=== PATIENT | female | born 1935 | race Caucasian/White ===

== ENCOUNTER 2022-03-13 13:37 | Inpatient (IN) ==
[2022-03-13 15:41] LABS: ABG BASE EXCESS 5.8 mmol/L (-2.0-2.0)
[2022-03-13 15:42] LABS: ABG ALLEN TEST POS; ABG HCO3 30.6 mmol/L (22-26)
[2022-03-13] MEDS: PULMICORT NEB TX 0.5 MG NEB SCH ×2 (16:05→20:57)
[2022-03-13 16:08] VITALS: BMI 28.5
[2022-03-13 16:14] LABS: BASOPHILS # (AUTO) 0.1 X10^3/uL (0.0-0.1); BASOPHILS % (AUTO) 1.2 % (0.2-1.0); EOSINOPHILS # (AUTO) 0.1 x10^3/uL (0.0-0.2); ERYTHROCYTE SEDIMENTATION RATE 43 MM/HOUR (0-20); HEMOGLOBIN 13.6 g/dL (12.0-16.0); LYMPHOCYTES # (AUTO) 1.5 X10^3/uL (1.3-2.9); LYMPHOCYTES % (AUTO) 21.9 % (21.0-51.0); MEAN CORPUSCULAR HEMOGLOBIN 31.3 pg (27.0-34.0); MEAN CORPUSCULAR HGB CONC 33.9 g/dL (33.0-35.0); MEAN CORPUSCULAR VOLUME 92.2 fL (80.0-100.0); MEAN PLATELET VOLUME 7.4 fL (7.4-11.0); MONOCYTES % (AUTO) 15.6 % (0.0-13.0); NEUTROPHILS % (AUTO) 60.3 % (42.0-75.0); RED BLOOD COUNT 4.34 X10^6/uL (3.5-5.4); RED CELL DISTRIBUTION WIDTH 14.5 % (11.6-16.5); WHITE BLOOD COUNT 6.7 X10^3/uL (3.6-10.0)
[2022-03-13 16:22] LABS: ALBUMIN 3.3 g/dL (3.4-5.0); CALCIUM 8.2 mg/dL (8.5-10.1); CARBON DIOXIDE 29.6 mmol/L (21-32); COR CA(FOR HYPOALB) 8.8 mg/dL (8.5-10.1); CREATININE 1.64 mg/dL (0.55-1.02); TOTAL PROTEIN 6.8 g/dL (6.4-8.2)
[2022-03-13 16:27] LABS: LACTIC ACID 1.8 mmol/L (0.4-2.0)
[2022-03-13 16:29] LABS: BILIRUBIN,URINE NEGATIVE (NEGATIVE); BLOOD/HEMOGLOBIN,URINE 1+ (NEGATIVE); GLUCOSE, URINE NEGATIVE (NEGATIVE); KETONES,URINE NEGATIVE (NEGATIVE); LEUKOCYTE ESTERASE ,URINE 3+ (NEGATIVE); NITRITES,URINE NEGATIVE (NEGATIVE); PROTEIN,URINE NEGATIVE (NEGATIVE); UROBILINOGEN,URINE NORMAL (NORMAL)
[2022-03-13 16:33] LABS: APPEARANCE,URINE HAZY (CLEAR); BACTERIA,URINE TRACE /HPF (NEGATIVE); COLOR,URINE YELLOW (YELLOW); SQUAMOUS EPITHELIAL CELL,UR FEW /HPF (NEGATIVE)
[2022-03-13] MEDS: SOLU-Medrol 40 MG VIAL IVP SCH ×2 (16:53→21:57)
[2022-03-13] MEDS: NS 1,000 ML IV 1,000 ML IV SCH (16:54)
[2022-03-13] MEDS: DUONEB 0.5 MG/3 MG (3 mL) NEB SCH (17:46)
--- NOTE | 2022-03-13 18:57 | RAD ---
HISTORYcomplaints of right sided rib pain that resulted from a recent fall.STUDYCHEST, 1 VIEWCOMPARISONNone.TECHNIQUEA single frontal view of the chest was obtained.FINDINGSThe heart is normal in size. There is no focal infiltrate. There is no effusion. There is no pneumothorax. The osseous structures are intact.IMPRESSIONNo focal infiltrate or effusion.Electronically signed by: Saundra Oscar (Mar 13, 2022 18:55:41)
[2022-03-13] MEDS: SNACK - Diabetic Appropriate PO SCH (20:50)
[2022-03-13] MEDS ORDERED: ROCEPHIN VIAL 1 GRAM 1 G in NS 100 ML IV + SPIKE MINIBAG* 100 ML IV SCH (23:00)
[2022-03-13] MEDS ORDERED: NS 100 ML IV 100 ML ONE (23:08)
[2022-03-13] MEDS ORDERED: ROCEPHIN VIAL 1 GRAM ONE (23:08)
[2022-03-14] MEDS: DUONEB 0.5 MG/3 MG (3 mL) NEB SCH ×2 (04:04→05:38)
[2022-03-14] MEDS: NovoLIN R (or HumuLIN R) SUBCUT PRN ×3 (05:25→20:23)
[2022-03-14] MEDS: NS 1,000 ML IV 1,000 ML IV SCH ×2 (05:25→20:12)
[2022-03-14] MEDS: SOLU-Medrol 40 MG VIAL IVP SCH ×3 (05:25→21:39)
[2022-03-14 06:38] LABS: BASOPHILS % (AUTO) 0.1 % (0.2-1.0); HEMATOCRIT 39.1 % (36.0-47.0); HEMOGLOBIN 13.2 g/dL (12.0-16.0); LYMPHOCYTES % (AUTO) 13.8 % (21.0-51.0); MEAN CORPUSCULAR HEMOGLOBIN 31.1 pg (27.0-34.0); MEAN CORPUSCULAR HGB CONC 33.7 g/dL (33.0-35.0); MEAN CORPUSCULAR VOLUME 92.2 fL (80.0-100.0); MEAN PLATELET VOLUME 8.2 fL (7.4-11.0); MONOCYTES # (AUTO) 0.2 x10^3/uL (0.3-0.8); MONOCYTES % (AUTO) 3.3 % (0.0-13.0); NEUTROPHILS # (AUTO) 5.7 x10^3/uL (2.2-4.8); NEUTROPHILS % (AUTO) 82.8 % (42.0-75.0); RED BLOOD COUNT 4.24 X10^6/uL (3.5-5.4); WHITE BLOOD COUNT 6.9 X10^3/uL (3.6-10.0)
[2022-03-14 06:53] LABS: ALBUMIN 3.1 g/dL (3.4-5.0); CALCIUM 7.9 mg/dL (8.5-10.1); CARBON DIOXIDE 28.4 mmol/L (21-32); COR CA(FOR HYPOALB) 8.6 mg/dL (8.5-10.1); CREATININE 1.38 mg/dL (0.55-1.02); TOTAL PROTEIN 6.8 g/dL (6.4-8.2)
[2022-03-14] MEDS: PULMICORT NEB TX 0.5 MG NEB SCH ×2 (08:40→20:04)
[2022-03-14] MEDS ORDERED: REMDESIVIR 200 MG in NS 250 ML IV 250 ML IV ONE (09:19)
--- NOTE | 2022-03-14 10:21 | DR.H&P ---
H&P - History & Physical for Day of: H&P Date: 03/13/22 - Chief Complaint Chief Complaint: WEAKNESS, FREQUENT FALLS, COVID-19, RIB PAIN - History of Present Illness History of Present Illness: IS A 86 YEAR OLD PATIENT OF OURS. SHE P RESENTED TO THE HOSPTIAL A DIRECT ADMISSION DUE TO COMPLAINTS OF GENERALIZED WEAKNESS, FREQUENT FALLS, AND COVID-19. HER DAUGHTER REPORTS THAT SHE TESTED POSITIVE FOR COVID-19 VIA HOME TEST 2 DAYS AGO. PATIENT REPORTS THAT SHE FELL AT HOME PRIOR TO ADMISSION. SHE REPORTS THAT SHE HAS FALLEN MULTIPLE TIMES OVER THE PAST FEW MONTHS. SHE COMPLAINS OF RIGHT SIDED RIB PAIN SINCE FALLING AND SHORTNESS OF BREATH. SHE RATES PAIN A 9/10. PAIN IS WORSE WITH MOVEMENT OR DEEP BREATHS. SHE DENIES CHEST PAIN, DIZZINESS, FEVER, OR COUGH. HER PMH INCLUDES: TIAs, HYPERLIPIDEMIA, HTN, A-FIB, COPD, GERD, DM II, HYPOTHYROIDISM, HX OF BREAST CANCER, HYSTERECTOMY, AND DOUBLE MASTECTOMY. ON ARRIVAL TO THE HOSPTIAL, VITALS WERE: 98.3-91-20-95%-108/65. LABS WERE OBTAINED. WBC 6.7, RBC 4.34, HGB 13.6, HCT 40.0, PLT COUNT 166, D-DIMER 0.52, SODIUM 134, POTASSIUM 3.6, CHLORIDE 98, BUN 22, CREATININE 1.64, GLUCOSE 209, LACTIC ACID 1.8, CALCIUM 8.2, AST 18, ALT 16, ALK PHOS 109, CRP 30.10, TOTAL PROTEIN 6.8, ALBUMIN 3.3. AN ABG WAS OBTAINED AND REVEALED: PH 7.450, PC02 44, P02 61, HC03 30.6, 02 SAT 92, BASE EXCESS 5.8, A-A GRADIENT 34, FI02 21.0. URINALYSIS REVEALED: WBC 30-50, RBC 5- 10, LEUKOCYTES 3+, BACTERIA TRACE. COVID-19 NEGATIVE. URINE AND BLOOD CULTURES WERE SET UP. A CHEST XRAY WAS OBTAINED AND REVEALED: NO FOCAL INFILTRATE OR EFFUSION. EKG OBTAINED AND REVEALED: ATRIAL FIBRILLATION WITH HR 92. SHE WAS STARTED ON NORMAL SALINE AT 75 ML/HR, REMDESIVIR 100MG IV DAILY (REMDESIVIR 200MG IV X 1 LOADING DOSE), ROCEPHIN 1G IV HS, SOLU-MEDROL 40MG IV Q8H, PULMICORT NEBS BID, DIFLUCAN 100MG PO DAILY, OTBS ACHS, HUMULIN R SLIDING SCALE, AND HER HOME MEDICATIONS WERE RESUMED. WE WILL OBTAIN A RIB SERIES TO ASSESS FOR RIB FRACTURES FOLLOWING FALL. OTHERWISE, WE PLAN TO FOLLOW-UP WITH AM LABS AND CONTINUE TO MONITOR. TIME SPENT ON CLINICAL ASSESSMENT, REVIWING LABS AND IMAGING, DECISION MAKING, AND DOCUMENTATION GREATER THAN 75 MINUTES. - Past Medical History Past Medical History: COPD, Diabetes, Dyslipidemia, GERD, Hypertension, Hyperthyroidism Additional Medical History: A-FIB, BREAST CANCER - Past Surgical History Surgical History: Hysterectomy, Other - Family History Family Medical History: Diabetes Mellitus, Cancer, [place], Hypertension - Social History Does patient currently use any type of tobacco product: No Have you used tobacco products in the last 12 months: No Type of Tobacco Use: None Does any household member use tobacco: No Alcohol Use: None Drug Use: None - Medications Home Medications: No Known Drug Allergies Allergy (Verified 03/13/22 16:26) CONTINUE taking the following medications allopurinol 100 mg tablet 1 tab PO QDAY 03/13/22 [History] atorvastatin 10 mg tablet 1 tab PO QPM cholesterol 03/13/22 [History] dabigatran etexilate 150 mg capsule (Pradaxa) 1 cap PO BID 03/13/22 [History] furosemide 40 mg tablet 1 tab PO BID 03/13/22 [History] glipizide 5 mg tablet 1.5 tab PO BID 03/13/22 [History] levothyroxine 50 mcg tablet 1 tab PO QAM 03/13/22 [History] nebivolol 2.5 mg tablet (Bystolic) 2.5 mg PO DAILY 03/13/22 [History] pantoprazole 40 mg tablet,delayed release 1 tab PO QDAY 03/13/22 [History] paroxetine HCl 20 mg tablet 1 tab PO QAM 03/13/22 [History] potassium chloride 10 mEq tablet,extended release 1 tab PO BID 03/13/22 [History] - Review of Systems Constitutional: Weakness Eyes: No Symptoms Reported ENT: No Symptoms Reported Respiratory: Shortness of Breath Cardiovascular: No Symptoms Reported Gastrointestinal: No Symptoms Reported Genitourinary: No Symptoms Reported Musculoskeletal: See HPI, Other (RIGHT SIDED RIB PAIN ) Skin: No Symptoms Reported Neurological: Weakness - Physical Exam Vital Signs: Temperature 97.5 F Pulse Rate [Left Brachial] 102 Pulse Rate 86 Respiratory Rate 20 Blood Pressure [Right Arm] 133/91 O2 Sat by Pulse Oximetry 97 Oriented: Normal Eyes: Normal Ear: Normal Nose: Normal Throat: Normal Respiratory: Diminished Throughout Cardiovascular: Irregular (A-FIB ). negative: S3, S4 : Normal Auscultation: Bowel Sounds: Normal Palpation: Normal Tenderness: Normal Skin: Normal Musculoskeletal: Right (RIGHT SIDED RIB TENDERNESS ), Tender Psychiatric: Normal Mood Description: Calm Affect: Normal Speech Pattern: Clear - Assessment/Plan (1) Urinary tract infection Qualifiers: Urinary tract infection type: acute cystitis Hematuria presence: with hematuria Qualified Code(s): N30.01 - Acute cystitis with hematuria Status: Acute Plan: ADMIT, NORMAL SALINE AT 75 ML/HR, REMDESIVIR 100MG IV DAILY (REMDESIVIR 200MG IV X 1 LOADING DOSE), ROCEPHIN 1G IV HS, SOLU-MEDROL 40MG IV Q8H, PULMICORT NEBS BID, DIFLUCAN 100MG PO DAILY, OTBS ACHS, HUMULIN R SLIDING SCALE, AND HER HOME MEDICATIONS WERE RESUMED. (2) COVID-19 Status: Acute (3) Generalized weakness Status: Acute (4) Frequent falls Status: Acute (5) HTN (hypertension) Qualifiers: Hypertension type: primary hypertension Qualified Code(s): I10 - Essential (primary) hypertension Status: Chronic (6) Diabetes mellitus Qualifiers: Diabetes mellitus type: type 2 Diabetes mellitus long-term insulin use: unspecified long-term insulin use status Diabetes mellitus complication status: with hyperglycemia Qualified Code(s): E11.65 - Type 2 diabetes mellitus with hyperglycemia Status: Chronic - Allergies Allergies/Adverse Reactions: Allergies Allergy/AdvReac Type Severity Reaction Status Date / Time No Known Drug Allergies Allergy Verified 03/13/22 16:26
--- NOTE | 2022-03-14 11:11 | RAD ---
HISTORYPAIN TO RIGHT UPPER RIB AFTER FALLSTUDYX-ray chest and right ribs, one view chest and two views right ribsCOMPARISONCT chest 03/12/2022FINDINGSBorderline CHF or fluid overload is suspected. There may be mild pulmonary edema. No pneumothorax or pleural effusion is seen. Mildly displaced left 10th rib fracture is seen laterally. No right rib fracture is seen.IMPRESSIONNo right rib fracture is seen. Mildly displaced left 10th rib fracture is seen.Electronically signed by: Doc Perera (Mar 14, 2022 11:10:23)
[2022-03-14] MEDS ORDERED: REMDESIVIR IV ONE (14:06)
[2022-03-14] MEDS ORDERED: NS 250 ML IV 250 ML IV ONE (14:07)
[2022-03-14] MEDS: ZYLOPRIM PO SCH (14:17)
[2022-03-14] MEDS: PROTONIX TAB 40 MG PO SCH (14:18)
[2022-03-14] MEDS: SYNTHROID 50 mcg TAB PO SCH (14:18)
[2022-03-14] MEDS: PRADAXA PO SCH ×2 (14:19→20:17)
[2022-03-14] MEDS: MICRO K EXTEN CAP 10 MEQ PO SCH ×2 (14:21→20:17)
[2022-03-14] MEDS: GLUCOTROL PO SCH ×2 (14:22→20:16)
[2022-03-14] MEDS: DIFLUCAN PO SCH (14:22)
[2022-03-14] MEDS: PAXIL PO SCH (14:23)
[2022-03-14] MEDS: NEBIVOLOL 2.5 MG PO SCH (15:21)
[2022-03-14] MEDS: ROCEPHIN VIAL 1 GRAM 1 G in NS 100 ML IV 100 ML IV SCH (20:14)
[2022-03-14] MEDS: SNACK - Diabetic Appropriate PO SCH ×2 (20:18→21:39)
[2022-03-14] MEDS: LIPITOR TAB 10 MG PO SCH (20:18)
[2022-03-14] MEDS ORDERED: MILK OF MAGNESIA PO PRN (23:16)
[2022-03-15 05:29] LABS: BASOPHILS % (AUTO) 0.2 % (0.2-1.0); HEMATOCRIT 35.6 % (36.0-47.0); HEMOGLOBIN 12.1 g/dL (12.0-16.0); LYMPHOCYTES # (AUTO) 0.7 X10^3/uL (1.3-2.9); LYMPHOCYTES % (AUTO) 5.1 % (21.0-51.0); MEAN CORPUSCULAR HEMOGLOBIN 30.9 pg (27.0-34.0); MEAN CORPUSCULAR VOLUME 90.9 fL (80.0-100.0); MONOCYTES # (AUTO) 0.5 x10^3/uL (0.3-0.8); MONOCYTES % (AUTO) 3.4 % (0.0-13.0); NEUTROPHILS # (AUTO) 13.4 x10^3/uL (2.2-4.8); NEUTROPHILS % (AUTO) 91.3 % (42.0-75.0); RED BLOOD COUNT 3.92 X10^6/uL (3.5-5.4); RED CELL DISTRIBUTION WIDTH 14.9 % (11.6-16.5); WHITE BLOOD COUNT 14.6 X10^3/uL (3.6-10.0)
[2022-03-15 05:33] LABS: ALBUMIN 2.9 g/dL (3.4-5.0); CALCIUM 7.9 mg/dL (8.5-10.1); CARBON DIOXIDE 26.8 mmol/L (21-32); COR CA(FOR HYPOALB) 8.8 mg/dL (8.5-10.1); CREATININE 1.16 mg/dL (0.55-1.02); TOTAL PROTEIN 6.3 g/dL (6.4-8.2)
[2022-03-15 05:50] LABS: BAND NEUTROPHILS % 3 % (0-10); PLATELET MORPHOLOGY COMMENT NORMAL (NORMAL)
[2022-03-15] MEDS: SOLU-Medrol 40 MG VIAL IVP SCH ×3 (05:51→21:31)
[2022-03-15] MEDS: PULMICORT NEB TX 0.5 MG NEB SCH ×2 (08:06→21:16)
[2022-03-15] MEDS ORDERED: LASIX IVP ONE (08:50)
[2022-03-15] MEDS: DIFLUCAN PO SCH (09:50)
[2022-03-15] MEDS: MICRO K EXTEN CAP 10 MEQ PO SCH ×2 (09:51→20:46)
[2022-03-15] MEDS: GLUCOTROL PO SCH ×2 (09:51→20:45)
[2022-03-15] MEDS: PAXIL PO SCH (09:52)
[2022-03-15] MEDS: NEBIVOLOL 2.5 MG PO SCH (09:52)
[2022-03-15] MEDS: PRADAXA PO SCH ×2 (09:52→20:43)
[2022-03-15] MEDS: REMDESIVIR 100 MG in NS 250 ML IV 250 ML IV SCH (09:54)
[2022-03-15] MEDS: PROTONIX TAB 40 MG PO SCH (09:54)
[2022-03-15] MEDS: ZYLOPRIM PO SCH (09:55)
[2022-03-15] MEDS: SYNTHROID 50 mcg TAB PO SCH (09:55)
[2022-03-15] MEDS: NS 1,000 ML IV 1,000 ML IV SCH ×3 (09:55→23:57)
[2022-03-15] MEDS: MILK OF MAGNESIA PO SCH ×4 (09:59→20:41)
[2022-03-15] MEDS: COLACE CAP 100 MG PO SCH ×2 (09:59→20:44)
[2022-03-15] MEDS: MIRALAX POWDER (1 DOSE 17 G) PO SCH (10:00)
[2022-03-15] MEDS: NovoLIN R (or HumuLIN R) SUBCUT PRN ×3 (12:58→21:31)
[2022-03-15] MEDS: SNACK - Diabetic Appropriate PO SCH ×2 (20:41)
[2022-03-15] MEDS: ROCEPHIN VIAL 1 GRAM 1 G in NS 100 ML IV 100 ML IV SCH (20:47)
[2022-03-15] MEDS: LIPITOR TAB 10 MG PO SCH (20:47)
[2022-03-15] MEDS: LOVENOX INJ 30 MG SYR SC SCH (22:12)
[2022-03-16] MEDS: SOLU-Medrol 40 MG VIAL IVP SCH ×3 (05:14→21:16)
[2022-03-16 05:33] LABS: HEMOGLOBIN 12.4 g/dL (12.0-16.0); WHITE BLOOD COUNT 14.2 X10^3/uL (3.6-10.0)
[2022-03-16 05:37] LABS: BASOPHILS % (AUTO) 0.2 % (0.2-1.0); HEMATOCRIT 36.6 % (36.0-47.0); LYMPHOCYTES # (AUTO) 0.6 X10^3/uL (1.3-2.9); LYMPHOCYTES % (AUTO) 4.4 % (21.0-51.0); MEAN CORPUSCULAR HEMOGLOBIN 31.1 pg (27.0-34.0); MEAN CORPUSCULAR HGB CONC 33.8 g/dL (33.0-35.0); MEAN CORPUSCULAR VOLUME 91.9 fL (80.0-100.0); MEAN PLATELET VOLUME 8.1 fL (7.4-11.0); MONOCYTES # (AUTO) 0.6 x10^3/uL (0.3-0.8); MONOCYTES % (AUTO) 4.2 % (0.0-13.0); NEUTROPHILS # (AUTO) 12.9 x10^3/uL (2.2-4.8); NEUTROPHILS % (AUTO) 91.2 % (42.0-75.0); RED BLOOD COUNT 3.99 X10^6/uL (3.5-5.4)
[2022-03-16 05:49] LABS: ALBUMIN 2.9 g/dL (3.4-5.0); CALCIUM 7.4 mg/dL (8.5-10.1); COR CA(FOR HYPOALB) 8.3 mg/dL (8.5-10.1); CREATININE 1.19 mg/dL (0.55-1.02); TOTAL PROTEIN 6.2 g/dL (6.4-8.2)
[2022-03-16] MEDS: NovoLIN R (or HumuLIN R) SUBCUT PRN ×3 (05:49→22:12)
[2022-03-16 05:59] LABS: BAND NEUTROPHILS % 2 % (0-10)
[2022-03-16 06:00] LABS: PLATELET MORPHOLOGY COMMENT NORMAL (NORMAL)
[2022-03-16] MEDS: PULMICORT NEB TX 0.5 MG NEB SCH ×2 (08:35→20:20)
[2022-03-16] MEDS ORDERED: REMDESIVIR IV ONE (09:35)
[2022-03-16] MEDS ORDERED: LASIX ONE (10:37)
[2022-03-16] MEDS: MILK OF MAGNESIA PO SCH ×2 (17:25→20:52)
--- NOTE | 2022-03-16 20:41 | PCM.PROG ---
Progress Note - Progress Note for Day of Date of Exam: 03/15/22 - Subjective Subjective: WAS ADMITTED FOR TREATMENT OF UTI, COVID-19, RIB FX, GENERALIZED WEAKNESS, AND FREQUENT FALLS. TODAY, SHE IS ALERT AND ORIENTED, LYING IN BED ON MORNING ROUNDS. SHE CONTINUES WITH COMPLAINTS OF GENERALIZED WEAKNESS AND RIB PAIN. ON EXAMINATION, HEART IS REGULAR IN RATE AND RHYTHM. BILATERAL LUNGS ARE NOTED WITH DIMINISHED LUNG SOUNDS THROUGHOUT. SHE IS CURRENTLY UTILIZING OXYGEN VIA NASAL CANNULA AT 2 LPM. SATURATIONS HAVE REMAINED IN THE 90s. ABDOMEN IS ROUND, SOFT, AND NOTED WITH MILD DIFFUSE TENDERNESS. 1+ BILATERAL LOWER EXTREMITY PITTING EDEMA IS NOTED. HER VITALS THIS MORNING ARE: 97.9-86-22-100%-134/65. LABS WERE OBTAINED. WBC 14.6, RBC 3.92, HGB 12.1, HCT 35.6, PLT COUNT 170, SODIUM 138, POTASSIUM 4.8, BUN 22, CREATININE 1.16, GLUCOSE 191, CALCIUM 7.9, CRP 15.10, BNP 430, TOTAL PROTEIN 6.3, ALBUMIN 2.9. BLOOD CULTURES ARE PENDING. URINE CULTURE REVEALS GROWTH OF E.COLI. RIB SERIES OBTAINED YESTERDAY REVEALED: No right rib fracture is seen. Mildly displaced le ft 10th rib fracture is seen. SHE IS CURRENTLY RECEIVING NORMAL SALINE AT 75 ML/HR, REMDESIVIR 100MG IV DAILY, ROCEPHIN 1G IV HS, SOLU-MEDROL 40MG IV Q8H, PULMICORT NEBS BID, DIFLUCAN 100MG PO DAILY, OTBS ACHS, HUMULIN R SLIDING SCALE, AND HER HOME MEDICATIONS WERE RESUMED. TODAY, WE WILL ADD MILK OF MAGNESIA 15ML PO QID, COLACE 100MG PO BID, AND MIRALAX 17G DAILY. OTHERWISE, WE WILL FOLLOW-UP WITH AM LABS AND CONTINUE TO MONITOR. TIME SPENT ON CLINICAL ASSESSMENT, REVIEWING LABS AND IMAGING, DECISION MAKING, AND DOCUMENTATION GREATER THAN 45 MINUTES. - Past Medical Family Social History Past Med/Fam/Surg Hx: No changes since H&P Allergies: Allergies No Known Drug Allergies Allergy (Verified 03/13/22 16:26) - Review of Systems ROS: No change since H&P - Vital Signs and I&O's Vital Signs: Temperature 98.1 F Pulse Rate [Left Brachial] 89 Pulse Rate 84 Respiratory Rate 18 Blood Pressure [Right Arm] 126/81 O2 Sat by Pulse Oximetry 97 Intake and Output: Intake & Output 03/14/22 03/15/22 03/16/22 03/17/22 11:59 11:59 11:59 11:59 Intake Total 21390 3995 / 3995 1944 480 / 480 Balance 2139 3995 / 3995 1944 480 / 480 - Physical Exam Oriented: Normal Eyes: Normal Ear: Normal Nose: Normal Throat: Normal Respiratory: Diminished Cardiovascular: Normal. negative: S3, S4 : Normal Auscultation: Bowel Sounds: Normal Palpation: Normal Tenderness: Normal Skin: Normal Musculoskeletal: Right (RIGHT SIDED RIB TENDERNESS ), Tender Psychiatric: Normal Mood Description: Calm Affect: Normal Speech Pattern: Clear, Appropriate - Laboratory and Diagnostics Result Diagrams: 03/16/22 04:50 03/16/22 04:50 Labs: 03/13/22 15:54 Blood Blood Culture - Preliminary 03/13/22 15:50 Blood Blood Culture - Preliminary 03/13/22 16:05 Urine,Clean Catch Urine Culture - Final Escherichia Coli Laboratory WBC 14.2 X10^3/uL (3.6-10.0) H 03/16/22 04:50 RBC 3.99 X10^6/uL (3.5-5.4) 03/16/22 04:50 Hgb 12.4 g/dL (12.0-16.0) 03/16/22 04:50 Hct 36.6 % (36.0-47.0) 03/16/22 04:50 MCV 91.9 fL (80.0-100.0) 03/16/22 04:50 MCH 31.1 pg (27.0-34.0) 03/16/22 04:50 MCHC 33.8 g/dL (33.0-35.0) 03/16/22 04:50 RDW 15.0 % (11.6-16.5) 03/16/22 04:50 Plt Count 174 X10^3/uL (150.0-450.0) 03/16/22 04:50 Plt Count Comment Adequate (ADEQUATE) 03/16/22 04:50 MPV 8.1 fL (7.4-11.0) 03/16/22 04:50 Neut % (Auto) 91.2 % (42.0-75.0) H 03/16/22 04:50 Lymph % (Auto) 4.4 % (21.0-51.0) L 03/16/22 04:50 [place] % (Auto) 4.2 % (0.0-13.0) 03/16/22 04:50 Eos % (Auto) 0.0 % (0.9-2.9) L 03/16/22 04:50 Baso % (Auto) 0.2 % (0.2-1.0) 03/16/22 04:50 Neut # (Auto) 12.9 x10^3/uL (2.2-4.8) H 03/16/22 04:50 Lymph # (Auto) 0.6 X10^3/uL (1.3-2.9) L 03/16/22 04:50 [place] # (Auto) 0.6 x10^3/uL (0.3-0.8) 03/16/22 04:50 Eos # (Auto) 0.0 x10^3/uL (0.0-0.2) 03/16/22 04:50 Baso # (Auto) 0.0 X10^3/uL (0.0-0.1) 03/16/22 04:50 Absolute Nucleated RBC 0.0 /100WBC 03/16/22 04:50 Total Counted 100 03/16/22 04:50 Neutrophils % (Manual) 87 % (39-76) H 03/16/22 04:50 Band Neutrophils % 2 % (0-10) 03/16/22 04:50 Lymphocytes % (Manual) 7 % (13-43) L 03/16/22 04:50 Monocytes % (Manual) 4 % (4-9) 03/16/22 04:50 Plt Morphology Comment Normal (NORMAL) 03/16/22 04:50 RBC Morphology Normal (NORMAL) 03/16/22 04:50 ESR 43 MM/HOUR (0-20) H 03/13/22 15:50 D-Dimer 0.52 ug/ml (0.0-0.57) 03/14/22 05:40 Sample Site Lrad 03/13/22 15:38 ABG pH 7.450 (7.35-7.45) 03/13/22 15:38 ABG pCO2 44.0 mmHg (35.0-45.0) 03/13/22 15:38 ABG pO2 61.0 mmHg (80.0-100.0) L 03/13/22 15:38 ABG HCO3 30.6 mmol/L (22-26) H* 03/13/22 15:38 ABG O2 Saturation 92.0 % (90-100) 03/13/22 15:38 ABG Base Excess 5.8 mmol/L (-2.0-2.0) H 03/13/22 15:38 Leo Test Pos 03/13/22 15:38 A-a Gradient 34.0 mmHg 03/13/22 15:38 FiO2 21.0 03/13/22 15:38 Blood Gas Comments Igor well ms 03/13/22 15:38 Sodium 136 mmol/L (136-145) 03/16/22 04:50 Corrected Sodium 140 mmol/L (136-145) 03/16/22 04:50 Potassium 5.3 mmol/L (3.5-5.1) H 03/16/22 04:50 Chloride 104 mmol/L (98-107) 03/16/22 04:50 Carbon Dioxide 28.0 mmol/L (21-32) 03/16/22 04:50 BUN 29 mg/dL (7-18) H 03/16/22 04:50 Creatinine 1.19 mg/dL (0.55-1.02) H 03/16/22 04:50 Est GFR (MDRD) Af Amer 55 (>60) L 03/16/22 04:50 Est GFR (MDRD) Non-Af 46 (>60) L 03/16/22 04:50 Glucose 261 mg/dL (65-99) H 03/16/22 04:50 POC Glucose (mg/dL) 214 mg/dL (65-99) H 03/16/22 17:37 Lactic Acid 1.8 mmol/L (0.4-2.0) 03/13/22 15:50 Calcium 7.4 mg/dL (8.5-10.1) L 03/16/22 04:50 Corrected Calcium 8.3 mg/dL (8.5-10.1) L 03/16/22 04:50 Total Bilirubin 0.20 mg/dL (0.2-1.0) 03/16/22 04:50 AST 22 Units/L (15-37) 03/16/22 04:50 ALT 20 Units/L (12-78) 03/16/22 04:50 Alkaline Phosphatase 102 Units/L (46-116) 03/16/22 04:50 C-Reactive Protein 8.30 mg/L (0-3.0) H 03/16/22 04:50 B-Natriuretic Peptide 259 pg/mL (0-79) H 03/16/22 04:50 Total Protein 6.2 g/dL (6.4-8.2) L 03/16/22 04:50 Albumin 2.9 g/dL (3.4-5.0) L 03/16/22 04:50 Globulin 3.3 g/dL (2.5-4.5) 03/16/22 04:50 Albumin/Globulin Ratio 0.9 Ratio (1.1-2.1) L 03/16/22 04:50 Specimen Type Clean catch urine 03/13/22 16:05 Urine Color Yellow (YELLOW) 03/13/22 16:05 Urine Appearance Hazy (CLEAR) 03/13/22 16:05 Urine pH 6.0 (5.0 - 8.0) 03/13/22 16:05 Ur Specific [employer] 1.010 (1.000-1.030) 03/13/22 16:05 Urine Protein Negative (NEGATIVE) 03/13/22 16:05 Urine Glucose (UA) Negative (NEGATIVE) 03/13/22 16:05 Urine Ketones Negative (NEGATIVE) 03/13/22 16:05 Urine Blood 1+ (NEGATIVE) 03/13/22 16:05 Urine Nitrite Negative (NEGATIVE) 03/13/22 16:05 Urine Bilirubin Negative (NEGATIVE) 03/13/22 16:05 Urine Urobilinogen Normal (NORMAL) 03/13/22 16:05 Ur Leukocyte Esterase 3+ (NEGATIVE) 03/13/22 16:05 Urine RBC 5-10 /HPF (0-3) A 03/13/22 16:05 Urine WBC 30-50 /HPF (0-5) A 03/13/22 16:05 Ur Squamous Epith Cells Few /HPF (NEGATIVE) 03/13/22 16:05 Urine Bacteria Trace /HPF (NEGATIVE) 03/13/22 16:05 Ur Culture Indicated? Yes/culture set up 03/13/22 16:05 SARS CoV-2 RNA Rapid JUAN Positive (NEGATIVE) A 03/13/22 19:30 - Plan (1) Urinary tract infection Status: Acute Qualifiers: Urinary tract infection type: acute cystitis Hematuria presence: with hematuria Qualified Code(s): N30.01 - Acute cystitis with hematuria Plan: NORMAL SALINE AT 75 ML/HR, REMDESIVIR 100MG IV DAILY, ROCEPHIN 1G IV HS, SOLU-MEDROL 40MG IV Q8H, PULMICORT NEBS BID, DIFLUCAN 100MG PO DAILY, OTBS ACHS, HUMULIN R SLIDING SCALE, COLACE, MILK OF MAGNESIA, MIRALAX, AND HER HOME MEDICATIONS WERE RESUMED. (2) COVID-19 Status: Acute (3) Generalized weakness Status: Acute (4) Frequent falls Status: Acute (5) HTN (hypertension) Status: Chronic Qualifiers: Hypertension type: primary hypertension Qualified Code(s): I10 - Essential (primary) hypertension (6) Diabetes mellitus Status: Chronic Qualifiers: Diabetes mellitus type: type 2 Diabetes mellitus rodent exterminator insulin use: unspecified rodent exterminator insulin use status Diabetes mellitus complication status: with hyperglycemia Qualified Code(s): E11.65 - Type 2 diabetes mellitus with hyperglycemia
--- NOTE | 2022-03-16 20:54 | PCM.PROG ---
Progress Note - Progress Note for Day of Date of Exam: 03/16/22 - Subjective Subjective: WAS ADMITTED FOR TREATMENT OF UTI, COVID-19, RIB FX, GENERALIZED WEAKNESS, AND FREQUENT FALLS. TODAY, SHE IS ALERT AND ORIENTED, LYING IN BED ON MORNING ROUNDS. SHE CONTINUES WITH COMPLAINTS OF GENERALIZED WEAKNESS, RIB PAIN, LOWER EXTREMITY SWELLING, ABDOMINAL CRAMPING, AND SHORTNESS OF BREATH AT TIMES. SHE DENIES HAVING A BOWEL MOVEMENT IN SEVERAL DAYS. ON EXAMINATION, HEART IS REGULAR IN RATE AND RHYTHM. BILATERAL LUNGS ARE NOTED WITH DIMINISHED LUNG SOUNDS THROUGHOUT. SHE IS CURRENTLY UTILIZING OXYGEN VIA NASAL CANNULA AT 2 LPM. SATURATIONS HAVE REMAINED IN THE 90s. ABDOMEN IS ROUND, SOFT, AND NOTED WITH MILD DIFFUSE TENDERNESS. 1+ BILATERAL LOWER EXTREMITY PITTING EDEMA IS NOTED. HER VITALS THIS MORNING ARE: 97.9-78-18-100%-138/84. LABS WERE OBTAINED. WBC 14.2, RBC 3.99, HGB 12.4, HCT 36.6, SODIUM 136, POTASSIUM 5.3, BUN 29, CREATININE 1.19, GLUCOSE 261, CALCIUM 7.4, AST 22, ALT 20, ALK PHOS 102, CRP 8.30, BNP 253, TOTAL PROTEIN 6.2, ALBUMIN 2.9. BLOOD CULTURES ARE PENDING. URINE CULTURE REVEALS GROWTH OF E.COLI. SHE IS CURRENTLY RECEIVING NORMAL SALINE AT 20 ML/HR, REMDESIVIR 100MG IV DAILY, ROCEPHIN 1G IV HS, SOLU-MEDROL 40MG IV Q8H, PULMICORT NEBS BID, DIFLUCAN 100MG PO DAILY, MILK OF MAGNESIA 15ML PO QID, COLACE 100MG PO BID, MIRALAX 17G DAILY, OTBS ACHS, HUMULIN R SLIDING SCALE, AND HER HOME MEDICATIONS WERE RESUMED. TODAY, WE WILL ADMINISTER LASIX 20MG IV X 1 DOSE. WE WILL OBTAIN A KUB THIS MORNING DUE TO ABDOMINAL PAIN. OTHERWISE, WE WILL FOLLOW-UP WITH AM LABS AND CONTINUE TO MONITOR. TIME SPENT ON CLINICAL ASSESSMENT, REVIEWING LABS AND IMAGING, DECISION MAKING, AND DOCUMENTATION GREATER THAN 45 MINUTES. - Past Medical Family Social History Past Med/Fam/Surg Hx: No changes since H&P Allergies: Allergies No Known Drug Allergies Allergy (Verified 03/13/22 16:26) - Review of Systems ROS: No change since H&P - Vital Signs and I&O's Vital Signs: Temperature 98.1 F Pulse Rate [Left Brachial] 89 Pulse Rate 84 Respiratory Rate 18 Blood Pressure [Right Arm] 126/81 O2 Sat by Pulse Oximetry 97 Intake and Output: Intake & Output 03/14/22 03/15/22 03/16/22 03/17/22 11:59 11:59 11:59 11:59 Intake Total 2140 / 2140 3995 / 3995 1945 / 1945 480 / 480 Balance 2140 / 2140 3995 / 3995 1945 / 1945 480 / 480 - Physical Exam Oriented: Normal Eyes: Normal Ear: Normal Nose: Normal Throat: Normal Respiratory: Diminished Cardiovascular: Normal, Edema (BLE 1+ PITTING EDEMA). negative: S3, S4 : Normal Auscultation: Bowel Sounds: Decreased Palpation: Normal Tenderness: Normal Skin: Normal Musculoskeletal: Right (RIGHT SIDED RIB TENDERNESS ), Tender Psychiatric: Normal Mood Description: Calm Affect: Normal Speech Pattern: Clear, Appropriate - Laboratory and Diagnostics Result Diagrams: 03/16/22 04:50 03/16/22 04:50 Labs: 03/13/22 15:54 Blood Blood Culture - Preliminary 03/13/22 15:50 Blood Blood Culture - Preliminary 03/13/22 16:05 Urine,Clean Catch Urine Culture - Final Escherichia Coli Laboratory WBC 14.2 X10^3/uL (3.6-10.0) H 03/16/22 04:50 RBC 3.99 X10^6/uL (3.5-5.4) 03/16/22 04:50 Hgb 12.4 g/dL (12.0-16.0) 03/16/22 04:50 Hct 36.6 % (36.0-47.0) 03/16/22 04:50 MCV 91.9 fL (80.0-100.0) 03/16/22 04:50 MCH 31.1 pg (27.0-34.0) 03/16/22 04:50 MCHC 33.8 g/dL (33.0-35.0) 03/16/22 04:50 RDW 15.0 % (11.6-16.5) 03/16/22 04:50 Plt Count 174 X10^3/uL (150.0-450.0) 03/16/22 04:50 Plt Count Comment Adequate (ADEQUATE) 03/16/22 04:50 MPV 8.1 fL (7.4-11.0) 03/16/22 04:50 Neut % (Auto) 91.2 % (42.0-75.0) H 03/16/22 04:50 Lymph % (Auto) 4.4 % (21.0-51.0) L 03/16/22 04:50 [place] % (Auto) 4.2 % (0.0-13.0) 03/16/22 04:50 Eos % (Auto) 0.0 % (0.9-2.9) L 03/16/22 04:50 Baso % (Auto) 0.2 % (0.2-1.0) 03/16/22 04:50 Neut # (Auto) 12.9 x10^3/uL (2.2-4.8) H 03/16/22 04:50 Lymph # (Auto) 0.6 X10^3/uL (1.3-2.9) L 03/16/22 04:50 [place] # (Auto) 0.6 x10^3/uL (0.3-0.8) 03/16/22 04:50 Eos # (Auto) 0.0 x10^3/uL (0.0-0.2) 03/16/22 04:50 Baso # (Auto) 0.0 X10^3/uL (0.0-0.1) 03/16/22 04:50 Absolute Nucleated RBC 0.0 /100WBC 03/16/22 04:50 Total Counted 100 03/16/22 04:50 Neutrophils % (Manual) 87 % (39-76) H 03/16/22 04:50 Band Neutrophils % 2 % (0-10) 03/16/22 04:50 Lymphocytes % (Manual) 7 % (13-43) L 03/16/22 04:50 Monocytes % (Manual) 4 % (4-9) 03/16/22 04:50 Plt Morphology Comment Normal (NORMAL) 03/16/22 04:50 RBC Morphology Normal (NORMAL) 03/16/22 04:50 ESR 43 MM/HOUR (0-20) H 03/13/22 15:50 D-Dimer 0.52 ug/ml (0.0-0.57) 03/14/22 05:40 Sample Site Lrad 03/13/22 15:38 ABG pH 7.450 (7.35-7.45) 03/13/22 15:38 ABG pCO2 44.0 mmHg (35.0-45.0) 03/13/22 15:38 ABG pO2 61.0 mmHg (80.0-100.0) L 03/13/22 15:38 ABG HCO3 30.6 mmol/L (22-26) H* 03/13/22 15:38 ABG O2 Saturation 92.0 % (90-100) 03/13/22 15:38 ABG Base Excess 5.8 mmol/L (-2.0-2.0) H 03/13/22 15:38 Leo Test Pos 03/13/22 15:38 A-a Gradient 34.0 mmHg 03/13/22 15:38 FiO2 21.0 03/13/22 15:38 Blood Gas Comments Igor well ms 03/13/22 15:38 Sodium 136 mmol/L (136-145) 03/16/22 04:50 Corrected Sodium 140 mmol/L (136-145) 03/16/22 04:50 Potassium 5.3 mmol/L (3.5-5.1) H 03/16/22 04:50 Chloride 104 mmol/L (98-107) 03/16/22 04:50 Carbon Dioxide 28.0 mmol/L (21-32) 03/16/22 04:50 BUN 29 mg/dL (7-18) H 03/16/22 04:50 Creatinine 1.19 mg/dL (0.55-1.02) H 03/16/22 04:50 Est GFR (MDRD) Af Amer 55 (>60) L 03/16/22 04:50 Est GFR (MDRD) Non-Af 46 (>60) L 03/16/22 04:50 Glucose 261 mg/dL (65-99) H 03/16/22 04:50 POC Glucose (mg/dL) 214 mg/dL (65-99) H 03/16/22 17:37 Lactic Acid 1.8 mmol/L (0.4-2.0) 03/13/22 15:50 Calcium 7.4 mg/dL (8.5-10.1) L 03/16/22 04:50 Corrected Calcium 8.3 mg/dL (8.5-10.1) L 03/16/22 04:50 Total Bilirubin 0.20 mg/dL (0.2-1.0) 03/16/22 04:50 AST 22 Units/L (15-37) 03/16/22 04:50 ALT 20 Units/L (12-78) 03/16/22 04:50 Alkaline Phosphatase 102 Units/L (46-116) 03/16/22 04:50 C-Reactive Protein 8.30 mg/L (0-3.0) H 03/16/22 04:50 B-Natriuretic Peptide 259 pg/mL (0-79) H 03/16/22 04:50 Total Protein 6.2 g/dL (6.4-8.2) L 03/16/22 04:50 Albumin 2.9 g/dL (3.4-5.0) L 03/16/22 04:50 Globulin 3.3 g/dL (2.5-4.5) 03/16/22 04:50 Albumin/Globulin Ratio 0.9 Ratio (1.1-2.1) L 03/16/22 04:50 Specimen Type Clean catch urine 03/13/22 16:05 Urine Color Yellow (YELLOW) 03/13/22 16:05 Urine Appearance Hazy (CLEAR) 03/13/22 16:05 Urine pH 6.0 (5.0 - 8.0) 03/13/22 16:05 Ur Specific [place] 1.010 (1.000-1.030) 03/13/22 16:05 Urine Protein Negative (NEGATIVE) 03/13/22 16:05 Urine Glucose (UA) Negative (NEGATIVE) 03/13/22 16:05 Urine Ketones Negative (NEGATIVE) 03/13/22 16:05 Urine Blood 1+ (NEGATIVE) 03/13/22 16:05 Urine Nitrite Negative (NEGATIVE) 03/13/22 16:05 Urine Bilirubin Negative (NEGATIVE) 03/13/22 16:05 Urine Urobilinogen Normal (NORMAL) 03/13/22 16:05 Ur Leukocyte Esterase 3+ (NEGATIVE) 03/13/22 16:05 Urine RBC 5-10 /HPF (0-3) A 03/13/22 16:05 Urine WBC 30-50 /HPF (0-5) A 03/13/22 16:05 Ur Squamous Epith Cells Few /HPF (NEGATIVE) 03/13/22 16:05 Urine Bacteria Trace /HPF (NEGATIVE) 03/13/22 16:05 Ur Culture Indicated? Yes/culture set up 03/13/22 16:05 SARS CoV-2 RNA Rapid JUAN Positive (NEGATIVE) A 03/13/22 19:30 - Plan (1) Urinary tract infection Status: Acute Qualifiers: Urinary tract infection type: acute cystitis Hematuria presence: with hematuria Qualified Code(s): N30.01 - Acute cystitis with hematuria Plan: NORMAL SALINE AT 20 ML/HR, REMDESIVIR 100MG IV DAILY, ROCEPHIN 1G IV HS, SOLU-MEDROL 40MG IV Q8H, PULMICORT NEBS BID, DIFLUCAN 100MG PO DAILY, OTBS ACHS, HUMULIN R SLIDING SCALE, COLACE, MILK OF MAGNESIA, MIRALAX, AND HER HOME MEDICATIONS WERE RESUMED. 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
[2022-03-16] MEDS: PRADAXA PO SCH ×2 (21:17→21:19)
[2022-03-16] MEDS: LIPITOR TAB 10 MG PO SCH (21:18)
[2022-03-16] MEDS: MICRO K EXTEN CAP 10 MEQ PO SCH (21:19)
[2022-03-16] MEDS: GLUCOTROL PO SCH (21:20)
[2022-03-16] MEDS: COLACE CAP 100 MG PO SCH (21:20)
[2022-03-16] MEDS: SNACK - Diabetic Appropriate PO SCH ×2 (21:21)
[2022-03-16] MEDS: ROCEPHIN VIAL 1 GRAM 1 G in NS 100 ML IV 100 ML IV SCH (21:21)
[2022-03-16] MEDS: LOVENOX INJ 30 MG SYR SC SCH (21:22)
[2022-03-17] MEDS: NS 1,000 ML IV 1,000 ML IV SCH ×2 (03:26→20:43)
[2022-03-17] MEDS: SOLU-Medrol 40 MG VIAL IVP SCH ×3 (05:05→21:22)
[2022-03-17] MEDS: NovoLIN R (or HumuLIN R) SUBCUT PRN ×4 (06:14→21:48)
[2022-03-17 06:20] LABS: BASOPHILS # (AUTO) 0.1 X10^3/uL (0.0-0.1); BASOPHILS % (AUTO) 0.8 % (0.2-1.0); EOSINOPHILS % (AUTO) 0.4 % (0.9-2.9); HEMOGLOBIN 12.3 g/dL (12.0-16.0); LYMPHOCYTES # (AUTO) 0.4 X10^3/uL (1.3-2.9); LYMPHOCYTES % (AUTO) 3.6 % (21.0-51.0); MEAN CORPUSCULAR HEMOGLOBIN 30.5 pg (27.0-34.0); MEAN CORPUSCULAR HGB CONC 33.3 g/dL (33.0-35.0); MEAN CORPUSCULAR VOLUME 91.6 fL (80.0-100.0); MONOCYTES # (AUTO) 0.2 x10^3/uL (0.3-0.8); NEUTROPHILS # (AUTO) 11.5 x10^3/uL (2.2-4.8); NEUTROPHILS % (AUTO) 93.2 % (42.0-75.0); RED BLOOD COUNT 4.04 X10^6/uL (3.5-5.4); RED CELL DISTRIBUTION WIDTH 14.6 % (11.6-16.5); WHITE BLOOD COUNT 12.3 X10^3/uL (3.6-10.0)
[2022-03-17 06:41] LABS: ALANINE AMINOTRANSFERASE 17 Units/L (12-78); ALBUMIN 2.8 g/dL (3.4-5.0); ALKALINE PHOSPHATASE 92 Units/L (46-116); ASPARTATE AMINO TRANSFERASE 14 Units/L (15-37); BLOOD UREA NITROGEN 27 mg/dL (7-18); CALCIUM 7.3 mg/dL (8.5-10.1); CARBON DIOXIDE 25.2 mmol/L (21-32); CHLORIDE 106 mmol/L (98-107); COR CA(FOR HYPOALB) 8.3 mg/dL (8.5-10.1); COR NA(FOR HYPERGLY) 138 mmol/L (136-145); CREATININE 1.08 mg/dL (0.55-1.02); SODIUM 136 mmol/L (136-145); TOTAL PROTEIN 5.9 g/dL (6.4-8.2); eGFR NON BLACK RACES 51 (>60)
[2022-03-17 07:01] LABS: BAND NEUTROPHILS % 3 % (0-10); PLATELET MORPHOLOGY COMMENT NORMAL (NORMAL)
[2022-03-17] MEDS: PULMICORT NEB TX 0.5 MG NEB SCH ×2 (08:39→20:36)
[2022-03-17] MEDS: REMDESIVIR 100 MG in NS 250 ML IV 250 ML IV SCH (09:26)
[2022-03-17] MEDS: MICRO K EXTEN CAP 10 MEQ PO SCH ×2 (09:27→20:40)
[2022-03-17] MEDS: ZYLOPRIM PO SCH (09:27)
[2022-03-17] MEDS: PRADAXA PO SCH ×2 (09:27→20:39)
[2022-03-17] MEDS: DIFLUCAN PO SCH (09:27)
[2022-03-17] MEDS: SYNTHROID 50 mcg TAB PO SCH (09:28)
[2022-03-17] MEDS: PROTONIX TAB 40 MG PO SCH (09:28)
[2022-03-17] MEDS: COLACE CAP 100 MG PO SCH ×2 (09:28→20:40)
[2022-03-17] MEDS: GLUCOTROL PO SCH ×2 (09:28→20:39)
[2022-03-17] MEDS: NEBIVOLOL 2.5 MG PO SCH (09:29)
[2022-03-17] MEDS: MILK OF MAGNESIA PO SCH ×4 (09:29→20:44)
[2022-03-17] MEDS: PAXIL PO SCH (09:29)
[2022-03-17] MEDS: MIRALAX POWDER (1 DOSE 17 G) PO SCH (09:29)
--- NOTE | 2022-03-17 11:51 | PCM.PROG ---
Progress Note - Progress Note for Day of Date of Exam: 03/17/22 - Subjective Subjective: WAS ADMITTED FOR TREATMENT OF UTI, COVID-19, RIB FX, GENERALIZED WEAKNESS, AND FREQUENT FALLS. TODAY, SHE IS ALERT AND ORIENTED, LYING IN BED ON MORNING ROUNDS. SHE CONTINUES WITH COMPLAINTS OF GENERALIZED WEAKNESS, RIB PAIN, AND SHORTNESS OF BREATH AT TIMES. SHE ADMITS TO HAVING A FEW BOWEL MOVEMENTS SINCE YESTERDAY. ON EXAMINATION, HEART IS REGULAR IN RATE AND RHYTHM. BILATERAL LUNGS ARE NOTED WITH DIMINISHED LUNG SOUNDS THROUGHOUT. SHE IS CURRENTLY UTILIZING OXYGEN VIA NASAL CANNULA AT 2 LPM. SATURATIONS HAVE REMAINED IN THE 90s. ABDOMEN IS ROUND, SOFT, AND NON-TENDER. TRACE BILATERAL LOWER EXTREMITY EDEMA IS NOTED. HER VITALS THIS MORNING ARE: 97.5-83-22-98%-140/66. LABS WERE OBTAINED. WBC 12.3, RBC 4.04, HGB 12.3, HCT 37.0, PLT COUNT 170, SODIUM 136, POTASSIUM 4.9, BUN 27, CREATININE 1.08, GLUCOSE 182, CALCIUM 7.3, AST 14, ALT 17, ALK PHOS 92, CRP 4.10, BNP 474, TOTAL PROTEIN 5.9, ALBUMIN 2.8. BLOOD CULTURES ARE PENDING. URINE CULTURE REVEALS GROWTH OF E.COLI. SHE IS CURRENTLY RECEIVING NORMAL SALINE AT 20 ML/HR, REMDESIVIR 100MG IV DAILY, ROCEPHIN 1G IV HS, SOLU-MEDROL 40MG IV Q8H, PULMICORT NEBS BID, DIFLUCAN 100MG PO DAILY, LASIX 20MG PO DAILY, MILK OF MAGNESIA 15ML PO QID, COLACE 100MG PO BID, MIRALAX 17G DAILY, OTBS ACHS, HUMULIN R SLIDING SCALE, AND HER HOME MEDICATIONS WERE RESUMED. PHYSICAL THERAPY RECOMMENDS LTC PLACEMENT FOR SWINBED AND CONTINUED PT SERVICES TO FACILITATE HIGHEST LEVEL OF FUNCTION PRIOR TO RETURNING HOME. WE ARE IN AGREEMENT WITH RECOMMENDATIONS AND WILL EXPLORE OUR OPTIONS. OTHERWISE, WE WILL FOLLOW-UP WITH AM LABS AND CONTINUE TO MONITOR. TIME SPENT ON CLINICAL ASSESSMENT, REVIEWING LABS AND IMAGING, DECISION MAKING, AND DOCUMENTATION GREATER THAN 45 MINUTES. - Past Medical Family Social History Past Med/Fam/Surg Hx: No changes since H&P Allergies: Allergies No Known Drug Allergies Allergy (Verified 03/13/22 16:26) - Review of Systems ROS: No change since H&P - Vital Signs and I&O's Vital Signs: Temperature 97.5 F Pulse Rate [Left Brachial] 83 Pulse Rate 89 Respiratory Rate 22 Blood Pressure [Right Arm] 134/104 O2 Sat by Pulse Oximetry 98 Intake and Output: Intake & Output 03/14/22 03/15/22 03/16/22 03/17/22 11:59 11:59 11:59 11:59 Intake Total 2139 / 0 3995 / 3995 1944 / 1944 1528 / 1528 Balance 2139 / 0 3995 / 3995 1944 152 / 1528 - Physical Exam Oriented: Normal Eyes: Normal Ear: Normal Nose: Normal Throat: Normal Respiratory: Diminished Cardiovascular: Normal, Edema (BLE TRACE EDEMA ). negative: S3, S4 : Normal Auscultation: Bowel Sounds: Decreased Palpation: Normal Tenderness: Normal Skin: Normal Musculoskeletal: Right (RIGHT SIDED RIB TENDERNESS ), Left (LEFT SIDED RIB TENDERNESS ), Tender Psychiatric: Normal Mood Description: Calm Affect: Normal Speech Pattern: Clear, Appropriate - Laboratory and Diagnostics Result Diagrams: 03/17/22 05:38 03/17/22 05:38 Labs: 03/13/22 15:54 Blood Blood Culture - Preliminary 03/13/22 15:50 Blood Blood Culture - Preliminary 03/13/22 16:05 Urine,Clean Catch Urine Culture - Final Escherichia Coli Laboratory WBC 12.3 X10^3/uL (3.6-10.0) H 03/17/22 05:38 RBC 4.04 X10^6/uL (3.5-5.4) 03/17/22 05:38 Hgb 12.3 g/dL (12.0-16.0) 03/17/22 05:38 Hct 37.0 % (36.0-47.0) 03/17/22 05:38 MCV 91.6 fL (80.0-100.0) 03/17/22 05:38 MCH 30.5 pg (27.0-34.0) 03/17/22 05:38 MCHC 33.3 g/dL (33.0-35.0) 03/17/22 05:38 RDW 14.6 % (11.6-16.5) 03/17/22 05:38 Plt Count 170 X10^3/uL (150.0-450.0) 03/17/22 05:38 Plt Count Comment Adequate (ADEQUATE) 03/17/22 05:38 MPV 8.0 fL (7.4-11.0) 03/17/22 05:38 Neut % (Auto) 93.2 % (42.0-75.0) H 03/17/22 05:38 Lymph % (Auto) 3.6 % (21.0-51.0) L 03/17/22 05:38 [place] % (Auto) 2.0 % (0.0-13.0) 03/17/22 05:38 Eos % (Auto) 0.4 % (0.9-2.9) L 03/17/22 05:38 Baso % (Auto) 0.8 % (0.2-1.0) 03/17/22 05:38 Neut # (Auto) 11.5 x10^3/uL (2.2-4.8) H 03/17/22 05:38 Lymph # (Auto) 0.4 X10^3/uL (1.3-2.9) L 03/17/22 05:38 [place] # (Auto) 0.2 x10^3/uL (0.3-0.8) L 03/17/22 05:38 Eos # (Auto) 0.0 x10^3/uL (0.0-0.2) 03/17/22 05:38 Baso # (Auto) 0.1 X10^3/uL (0.0-0.1) 03/17/22 05:38 Absolute Nucleated RBC 0.0 /100WBC 03/17/22 05:38 Total Counted 100 03/17/22 05:38 Neutrophils % (Manual) 91 % (39-76) H 03/17/22 05:38 Band Neutrophils % 3 % (0-10) 03/17/22 05:38 Lymphocytes % (Manual) 3 % (13-43) L 03/17/22 05:38 Monocytes % (Manual) 2 % (4-9) L 03/17/22 05:38 Eosinophils % (Manual) 1 % (0-6) 03/17/22 05:38 Plt Morphology Comment Normal (NORMAL) 03/17/22 05:38 RBC Morphology Normal (NORMAL) 03/17/22 05:38 ESR 43 MM/HOUR (0-20) H 03/13/22 15:50 D-Dimer 0.52 ug/ml (0.0-0.57) 03/14/22 05:40 Sample Site Lrad 03/13/22 15:38 ABG pH 7.450 (7.35-7.45) 03/13/22 15:38 ABG pCO2 44.0 mmHg (35.0-45.0) 03/13/22 15:38 ABG pO2 61.0 mmHg (80.0-100.0) L 03/13/22 15:38 ABG HCO3 30.6 mmol/L (22-26) H* 03/13/22 15:38 ABG O2 Saturation 92.0 % (90-100) 03/13/22 15:38 ABG Base Excess 5.8 mmol/L (-2.0-2.0) H 03/13/22 15:38 Leo Test Pos 03/13/22 15:38 A-a Gradient 34.0 mmHg 03/13/22 15:38 FiO2 21.0 03/13/22 15:38 Blood Gas Comments Igor well ms 03/13/22 15:38 Sodium 136 mmol/L (136-145) 03/17/22 05:38 Corrected Sodium 138 mmol/L (136-145) 03/17/22 05:38 Potassium 4.9 mmol/L (3.5-5.1) 03/17/22 05:38 Chloride 106 mmol/L (98-107) 03/17/22 05:38 Carbon Dioxide 25.2 mmol/L (21-32) 03/17/22 05:38 BUN 27 mg/dL (7-18) H 03/17/22 05:38 Creatinine 1.08 mg/dL (0.55-1.02) H 03/17/22 05:38 Est GFR (MDRD) Af Amer > 60 (>60) 03/17/22 05:38 Est GFR (MDRD) Non-Af 51 (>60) L 03/17/22 05:38 Glucose 182 mg/dL (65-99) H 03/17/22 05:38 POC Glucose (mg/dL) 165 mg/dL (65-99) H 03/17/22 05:43 Lactic Acid 1.8 mmol/L (0.4-2.0) 03/13/22 15:50 Calcium 7.3 mg/dL (8.5-10.1) L 03/17/22 05:38 Corrected Calcium 8.3 mg/dL (8.5-10.1) L 03/17/22 05:38 Total Bilirubin 0.20 mg/dL (0.2-1.0) 03/17/22 05:38 AST 14 Units/L (15-37) L 03/17/22 05:38 ALT 17 Units/L (12-78) 03/17/22 05:38 Alkaline Phosphatase 92 Units/L (46-116) 03/17/22 05:38 C-Reactive Protein 4.10 mg/L (0-3.0) H 03/17/22 05:38 B-Natriuretic Peptide 474 pg/mL (0-79) H 03/17/22 05:38 Total Protein 5.9 g/dL (6.4-8.2) L 03/17/22 05:38 Albumin 2.8 g/dL (3.4-5.0) L 03/17/22 05:38 Globulin 3.1 g/dL (2.5-4.5) 03/17/22 05:38 Albumin/Globulin Ratio 0.9 Ratio (1.1-2.1) L 03/17/22 05:38 Specimen Type Clean catch urine 03/13/22 16:05 Urine Color Yellow (YELLOW) 03/13/22 16:05 Urine Appearance Hazy (CLEAR) 03/13/22 16:05 Urine pH 6.0 (5.0 - 8.0) 03/13/22 16:05 Ur Specific [place] 1.010 (1.000-1.030) 03/13/22 16:05 Urine Protein Negative (NEGATIVE) 03/13/22 16:05 Urine Glucose (UA) Negative (NEGATIVE) 03/13/22 16:05 Urine Ketones Negative (NEGATIVE) 03/13/22 16:05 Urine Blood 1+ (NEGATIVE) 03/13/22 16:05 Urine Nitrite Negative (NEGATIVE) 03/13/22 16:05 Urine Bilirubin Negative (NEGATIVE) 03/13/22 16:05 Urine Urobilinogen Normal (NORMAL) 03/13/22 16:05 Ur Leukocyte Esterase 3+ (NEGATIVE) 03/13/22 16:05 Urine RBC 5-10 /HPF (0-3) A 03/13/22 16:05 Urine WBC 30-50 /HPF (0-5) A 03/13/22 16:05 Ur Squamous Epith Cells Few /HPF (NEGATIVE) 03/13/22 16:05 Urine Bacteria Trace /HPF (NEGATIVE) 03/13/22 16:05 Ur Culture Indicated? Yes/culture set up 03/13/22 16:05 SARS CoV-2 RNA Rapid JUAN Positive (NEGATIVE) A 03/13/22 19:30 - Plan (1) Urinary tract infection Status: Acute Qualifiers: Urinary tract infection type: acute cystitis Hematuria presence: with hematuria Qualified Code(s): N30.01 - Acute cystitis with hematuria Plan: NORMAL SALINE AT 20 ML/HR, REMDESIVIR 100MG IV DAILY, ROCEPHIN 1G IV HS, SOLU-MEDROL 40MG IV Q8H, PULMICORT NEBS BID, DIFLUCAN 100MG PO DAILY, OTBS ACHS, HUMULIN R SLIDING SCALE, COLACE, MILK OF MAGNESIA, MIRALAX, AND HER HOME MEDICATIONS WERE RESUMED. 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
[2022-03-17] MEDS: LASIX PO SCH (14:52)
[2022-03-17] MEDS: LIPITOR TAB 10 MG PO SCH (20:40)
[2022-03-17] MEDS: ROCEPHIN VIAL 1 GRAM 1 G in NS 100 ML IV 100 ML IV SCH (20:41)
[2022-03-17] MEDS: SNACK - Diabetic Appropriate PO SCH ×2 (20:44)
[2022-03-17] MEDS: LOVENOX INJ 30 MG SYR SC SCH (20:45)
[2022-03-18] MEDS: SOLU-Medrol 40 MG VIAL IVP SCH ×3 (05:03→22:15)
[2022-03-18] MEDS: NovoLIN R (or HumuLIN R) SUBCUT PRN ×4 (05:40→22:51)
[2022-03-18 06:55] LABS: BASOPHILS % (AUTO) 0.3 % (0.2-1.0); LYMPHOCYTES # (AUTO) 0.5 X10^3/uL (1.3-2.9); LYMPHOCYTES % (AUTO) 4.6 % (21.0-51.0); MEAN CORPUSCULAR HEMOGLOBIN 30.9 pg (27.0-34.0); MEAN CORPUSCULAR HGB CONC 33.4 g/dL (33.0-35.0); MEAN CORPUSCULAR VOLUME 92.4 fL (80.0-100.0); MEAN PLATELET VOLUME 8.3 fL (7.4-11.0); MONOCYTES # (AUTO) 0.5 x10^3/uL (0.3-0.8); MONOCYTES % (AUTO) 4.6 % (0.0-13.0); NEUTROPHILS # (AUTO) 10.5 x10^3/uL (2.2-4.8); NEUTROPHILS % (AUTO) 90.5 % (42.0-75.0); RED BLOOD COUNT 4.22 X10^6/uL (3.5-5.4); RED CELL DISTRIBUTION WIDTH 14.9 % (11.6-16.5); WHITE BLOOD COUNT 11.6 X10^3/uL (3.6-10.0)
[2022-03-18 07:18] LABS: ALBUMIN 2.9 g/dL (3.4-5.0); CALCIUM 7.2 mg/dL (8.5-10.1); CARBON DIOXIDE 27.3 mmol/L (21-32); COR CA(FOR HYPOALB) 8.1 mg/dL (8.5-10.1); CREATININE 1.15 mg/dL (0.55-1.02); TOTAL PROTEIN 6.2 g/dL (6.4-8.2)
[2022-03-18 08:24] LABS: PLATELET MORPHOLOGY COMMENT NORMAL (NORMAL)
[2022-03-18] MEDS: COLACE CAP 100 MG PO SCH ×2 (09:05→22:17)
[2022-03-18] MEDS: REMDESIVIR 100 MG in NS 250 ML IV 250 ML IV SCH (09:05)
[2022-03-18] MEDS: SYNTHROID 50 mcg TAB PO SCH (09:06)
[2022-03-18] MEDS: PRADAXA PO SCH ×3 (09:06→22:21)
[2022-03-18] MEDS: DIFLUCAN PO SCH (09:06)
[2022-03-18] MEDS: ZYLOPRIM PO SCH (09:06)
[2022-03-18] MEDS: GLUCOTROL PO SCH ×2 (09:06→22:19)
[2022-03-18] MEDS: LASIX PO SCH (09:06)
[2022-03-18] MEDS: PAXIL PO SCH (09:06)
[2022-03-18] MEDS: PROTONIX TAB 40 MG PO SCH (09:07)
[2022-03-18] MEDS: MIRALAX POWDER (1 DOSE 17 G) PO SCH (09:08)
[2022-03-18] MEDS: MILK OF MAGNESIA PO SCH ×4 (09:08→22:48)
[2022-03-18] MEDS: MICRO K EXTEN CAP 10 MEQ PO SCH ×3 (09:08→22:48)
[2022-03-18] MEDS: PULMICORT NEB TX 0.5 MG NEB SCH ×2 (09:12→20:55)
[2022-03-18] MEDS: NEBIVOLOL 2.5 MG PO SCH (11:53)
[2022-03-18] MEDS: ROCEPHIN VIAL 1 GRAM 1 G in NS 100 ML IV 100 ML IV SCH (22:14)
[2022-03-18] MEDS: LOVENOX INJ 30 MG SYR SC SCH (22:19)
[2022-03-18] MEDS: LIPITOR TAB 10 MG PO SCH (22:20)
[2022-03-18] MEDS: SNACK - Diabetic Appropriate PO SCH ×2 (22:49→22:50)
[2022-03-19] MEDS: NS 1,000 ML IV 1,000 ML IV SCH (01:08)
[2022-03-19] MEDS: SOLU-Medrol 40 MG VIAL IVP SCH ×2 (05:41→15:32)
[2022-03-19 07:28] LABS: ALBUMIN 2.9 g/dL (3.4-5.0); CALCIUM 7.3 mg/dL (8.5-10.1); CARBON DIOXIDE 26.2 mmol/L (21-32); COR CA(FOR HYPOALB) 8.2 mg/dL (8.5-10.1); CREATININE 1.15 mg/dL (0.55-1.02); TOTAL PROTEIN 6.1 g/dL (6.4-8.2)
[2022-03-19 07:50] LABS: BASOPHILS % (AUTO) 0.3 % (0.2-1.0); EOSINOPHILS % (AUTO) 0.4 % (0.9-2.9); HEMATOCRIT 40.5 % (36.0-47.0); HEMOGLOBIN 13.7 g/dL (12.0-16.0); LYMPHOCYTES # (AUTO) 0.6 X10^3/uL (1.3-2.9); LYMPHOCYTES % (AUTO) 5.4 % (21.0-51.0); MEAN CORPUSCULAR HEMOGLOBIN 31.1 pg (27.0-34.0); MEAN CORPUSCULAR HGB CONC 33.8 g/dL (33.0-35.0); MEAN CORPUSCULAR VOLUME 92.2 fL (80.0-100.0); MEAN PLATELET VOLUME 8.3 fL (7.4-11.0); MONOCYTES # (AUTO) 0.4 x10^3/uL (0.3-0.8); MONOCYTES % (AUTO) 4.2 % (0.0-13.0); NEUTROPHILS # (AUTO) 9.4 x10^3/uL (2.2-4.8); NEUTROPHILS % (AUTO) 89.7 % (42.0-75.0); RED BLOOD COUNT 4.39 X10^6/uL (3.5-5.4); RED CELL DISTRIBUTION WIDTH 14.8 % (11.6-16.5); WHITE BLOOD COUNT 10.5 X10^3/uL (3.6-10.0)
[2022-03-19] MEDS: PULMICORT NEB TX 0.5 MG NEB SCH ×2 (08:29→20:15)
[2022-03-19] MEDS: DIFLUCAN PO SCH (09:04)
[2022-03-19] MEDS: COLACE CAP 100 MG PO SCH ×2 (09:04→22:00)
[2022-03-19] MEDS: GLUCOTROL PO SCH ×2 (09:05→22:00)
[2022-03-19] MEDS: MICRO K EXTEN CAP 10 MEQ PO SCH ×2 (09:05→22:32)
[2022-03-19] MEDS: LASIX PO SCH (09:05)
[2022-03-19] MEDS: PROTONIX TAB 40 MG PO SCH (09:06)
[2022-03-19] MEDS: PRADAXA PO SCH ×2 (09:06→22:00)
[2022-03-19] MEDS: MIRALAX POWDER (1 DOSE 17 G) PO SCH (09:06)
[2022-03-19] MEDS: MILK OF MAGNESIA PO SCH ×4 (09:06→22:33)
[2022-03-19] MEDS: PAXIL PO SCH (09:06)
[2022-03-19] MEDS: SYNTHROID 50 mcg TAB PO SCH (09:07)
[2022-03-19] MEDS: REMDESIVIR 100 MG in NS 250 ML IV 250 ML IV SCH (09:07)
[2022-03-19] MEDS: ZYLOPRIM PO SCH (09:07)
[2022-03-19] MEDS: NovoLIN R (or HumuLIN R) SUBCUT PRN ×3 (11:20→23:39)
--- NOTE | 2022-03-19 15:15 | RAD ---
HISTORYCOVID-19 rib fracturesSTUDYChest PA and lateral viewsCOMPARISONSeptember 2019FINDINGSHeart size normal with no definite pulmonary abnormality identified. On lateral view however, small pleural effusions are noted in both posterior costophrenic sulci.IMPRESSIONInterval appearance of bilateral pleural effusions.Electronically signed by: MARIIA FUENTES (Mar 19, 2022 15:13:42)
[2022-03-19] MEDS: ROCEPHIN VIAL 1 GRAM 1 G in NS 100 ML IV 100 ML IV SCH (22:00)
[2022-03-19] MEDS: LIPITOR TAB 10 MG PO SCH (22:00)
[2022-03-19] MEDS: LOVENOX INJ 30 MG SYR SC SCH (22:00)
[2022-03-19] MEDS: SNACK - Diabetic Appropriate PO SCH ×2 (22:30→22:31)
[2022-03-20 06:27] LABS: BASOPHILS % (AUTO) 0.2 % (0.2-1.0); EOSINOPHILS % (AUTO) 0.1 % (0.9-2.9); HEMATOCRIT 41.3 % (36.0-47.0); LYMPHOCYTES # (AUTO) 1.1 X10^3/uL (1.3-2.9); LYMPHOCYTES % (AUTO) 7.9 % (21.0-51.0); MEAN CORPUSCULAR HEMOGLOBIN 31.2 pg (27.0-34.0); MEAN CORPUSCULAR HGB CONC 33.9 g/dL (33.0-35.0); MEAN CORPUSCULAR VOLUME 92.3 fL (80.0-100.0); MEAN PLATELET VOLUME 7.9 fL (7.4-11.0); MONOCYTES # (AUTO) 1.3 x10^3/uL (0.3-0.8); MONOCYTES % (AUTO) 9.1 % (0.0-13.0); NEUTROPHILS # (AUTO) 11.6 x10^3/uL (2.2-4.8); NEUTROPHILS % (AUTO) 82.7 % (42.0-75.0); RED BLOOD COUNT 4.47 X10^6/uL (3.5-5.4); RED CELL DISTRIBUTION WIDTH 14.8 % (11.6-16.5)
[2022-03-20 06:39] LABS: ALBUMIN 2.9 g/dL (3.4-5.0); CALCIUM 7.5 mg/dL (8.5-10.1); CARBON DIOXIDE 23.8 mmol/L (21-32); COR CA(FOR HYPOALB) 8.4 mg/dL (8.5-10.1); CREATININE 1.17 mg/dL (0.55-1.02)
--- NOTE | 2022-03-20 06:51 | RAD ---
HISTORYCOVID-19 SOBSTUDYPortable AP [id number]/11/2022FINDINGSHeart size remains upper-normal with clear lungs and no evidence for mediastinal or hilar abnormality.IMPRESSIONNo acute findings. The recently described pleural effusions are not identified on this AP view.Electronically signed by: MARIIA FUENTES (Mar 20, 2022 06:49:58)
[2022-03-20] MEDS: PULMICORT NEB TX 0.5 MG NEB SCH ×2 (08:10→21:00)
[2022-03-20] MEDS: REMDESIVIR 100 MG in NS 250 ML IV 250 ML IV SCH (09:22)
[2022-03-20] MEDS: PRADAXA PO SCH ×2 (09:22→21:42)
[2022-03-20] MEDS: SOLU-Medrol 40 MG VIAL IVP SCH (09:23)
[2022-03-20] MEDS: SYNTHROID 50 mcg TAB PO SCH (09:23)
[2022-03-20] MEDS: PAXIL PO SCH (09:23)
[2022-03-20] MEDS: DIFLUCAN PO SCH (09:23)
[2022-03-20] MEDS: GLUCOTROL PO SCH ×2 (09:23→21:42)
[2022-03-20] MEDS: MICRO K EXTEN CAP 10 MEQ PO SCH ×2 (09:23→21:43)
[2022-03-20] MEDS: LASIX PO SCH (09:24)
[2022-03-20] MEDS: COLACE CAP 100 MG PO SCH ×2 (09:24→21:41)
[2022-03-20] MEDS: PROTONIX TAB 40 MG PO SCH (09:24)
[2022-03-20] MEDS: LOPRESSOR TAB 25 MG PO SCH ×2 (09:24→21:41)
[2022-03-20] MEDS: ZYLOPRIM PO SCH (09:24)
[2022-03-20] MEDS: MILK OF MAGNESIA PO SCH ×4 (09:25→21:50)
[2022-03-20] MEDS: MIRALAX POWDER (1 DOSE 17 G) PO SCH (09:25)
[2022-03-20] MEDS: NovoLIN R (or HumuLIN R) SUBCUT PRN ×3 (11:45→21:38)
--- NOTE | 2022-03-20 12:52 | PCM.PROG ---
Progress Note - Progress Note for Day of Date of Exam: 03/20/22 - Subjective Subjective: WAS ADMITTED FOR TREATMENT OF E.COLI UTI, COVID-19, RIB FX, GENERALIZED WEAKNESS, AND FREQUENT FALLS. TODAY, SHE IS ALERT AND ORIENTED, LYING IN BED ON MORNING ROUNDS. SHE CONTINUES WITH COMPLAINTS OF GENERALIZED WEAKNESS AND RIB PAIN AT TIMES. SHE ALSO HAS AN OCCASIONAL NON-PRODUCTIVE COUGH. OVERALL, SHE REPORTS IMPROVEMENT SINCE ADMISSION. ON EXAMINATION, SHE IS TACHYCARDIC WITH HR 110-120bpm. ATRIAL FIBRILLATION NOTED. BILATERAL LUNGS ARE NOTED WITH DIMINISHED LUNG SOUNDS THROUGHOUT. SHE IS CURRENTLY UTILIZING OXYGEN VIA NASAL CANNULA AT 2 LPM. SATURATIONS HAVE REMAINED IN THE 90s. ABDOMEN IS ROUND, SOFT, AND NON-TENDER. TRACE BILATERAL LOWER EXTREMITY EDEMA IS NOTED. HER VITALS THIS MORNING ARE: 98.6-120-20-97%-118/73. LABS WERE OBTAINED. WBC 14.0, HGB 14.0, HCT 41.3, SODIUM 138, POTASSIUM 4.6, BUN 28, CREATININE 1.17, GLUCOSE 194, CALCIUM 7.5, AST 13, ALT 24, ALK PHOS 104, CRP 434, TOTAL PROTEIN 6.0, ALBUMIN 2.9. CHEST XRAY REVEALED: No acute findings. The recently described pleural effusions are not identified on this AP view. SHE IS CURRENTLY RECEIVING NORMAL SALINE AT 20 ML/HR, REMDESIVIR 100MG IV DAILY, ROCEPHIN 1G IV HS, SOLU- MEDROL 40MG IV DAILY, PULMICORT NEBS BID, DIFLUCAN 100MG PO DAILY, LASIX 20MG PO DAILY, MILK OF MAGNESIA 15ML PO QID, COLACE 100MG PO BID, MIRALAX 17G DAILY, OTBS ACHS, HUMULIN R SLIDING SCALE, AND HER HOME MEDICATIONS WERE RESUMED. TODAY, WE WILL ADD METOPROLOL 25MG PO BID FOR A-FIB WITH ELEVATED HEART RATE. PHYSICAL THERAPY RECOMMENDS LTC PLACEMENT FOR SWINBED AND CONTINUED PT SERVICES TO FACILITATE HIGHEST LEVEL OF FUNCTION PRIOR TO RETURNING HOME. WE ARE IN AGREEMENT WITH RECOMMENDATIONS AND WILL EXPLORE OUR OPTIONS. OTHERWISE, WE WILL FOLLOW-UP WITH AM LABS AND CONTINUE TO MONITOR. TIME SPENT ON CLINICAL ASSESSMENT, REVIEWING LABS AND IMAGING, DECISION MAKING, AND DOCUMENTATION GREATER THAN 45 MINUTES. - Past Medical Family Social History Past Med/Fam/Surg Hx: No changes since H&P Allergies: Allergies No Known Drug Allergies Allergy (Verified 03/13/22 16:26) - Review of Systems ROS: No change since H&P - Vital Signs and I&O's Vital Signs: Temperature 98.6 F Pulse Rate [Left Brachial] 120 Pulse Rate 111 Respiratory Rate 20 Blood Pressure [Right Arm] 118/73 O2 Sat by Pulse Oximetry 99 Intake and Output: Intake & Output 03/18/22 03/19/22 03/20/22 03/21/22 11:59 11:59 11:59 11:59 Intake Total 217 / 2 1725 / 1725 1490 / 1490 Balance 2171 1725 / 1725 1490 / 1490 - Physical Exam Oriented: Normal Eyes: Normal Ear: Normal Nose: Normal Throat: Normal Respiratory: Diminished Cardiovascular: Tachycardia, Irregular (A-FIB), Edema (BLE TRACE EDEMA ). negative: S3, S4 : Normal Auscultation: Bowel Sounds: Decreased Palpation: Normal Tenderness: Normal Skin: Normal Musculoskeletal: Right (RIGHT SIDED RIB TENDERNESS ), Left (LEFT SIDED RIB TENDERNESS ), Tender Psychiatric: Normal Mood Description: Calm Affect: Normal Speech Pattern: Clear, Appropriate - Laboratory and Diagnostics Result Diagrams: 03/20/22 05:43 03/20/22 05:43 Labs: 03/13/22 15:54 Blood Blood Culture - Final 03/13/22 15:50 Blood Blood Culture - Final 03/13/22 16:05 Urine,Clean Catch Urine Culture - Final Escherichia Coli Laboratory WBC 14.0 X10^3/uL (3.6-10.0) H 03/20/22 05:43 RBC 4.47 X10^6/uL (3.5-5.4) 03/20/22 05:43 Hgb 14.0 g/dL (12.0-16.0) 03/20/22 05:43 Hct 41.3 % (36.0-47.0) 03/20/22 05:43 MCV 92.3 fL (80.0-100.0) 03/20/22 05:43 MCH 31.2 pg (27.0-34.0) 03/20/22 05:43 MCHC 33.9 g/dL (33.0-35.0) 03/20/22 05:43 RDW 14.8 % (11.6-16.5) 03/20/22 05:43 Plt Count 247 X10^3/uL (150.0-450.0) 03/20/22 05:43 Plt Count Comment Adequate (ADEQUATE) 03/18/22 06:08 MPV 7.9 fL (7.4-11.0) 03/20/22 05:43 Neut % (Auto) 82.7 % (42.0-75.0) H 03/20/22 05:43 Lymph % (Auto) 7.9 % (21.0-51.0) L 03/20/22 05:43 [place] % (Auto) 9.1 % (0.0-13.0) 03/20/22 05:43 Eos % (Auto) 0.1 % (0.9-2.9) L 03/20/22 05:43 Baso % (Auto) 0.2 % (0.2-1.0) 03/20/22 05:43 Neut # (Auto) 11.6 x10^3/uL (2.2-4.8) H 03/20/22 05:43 Lymph # (Auto) 1.1 X10^3/uL (1.3-2.9) L 03/20/22 05:43 [place] # (Auto) 1.3 x10^3/uL (0.3-0.8) H 03/20/22 05:43 Eos # (Auto) 0.0 x10^3/uL (0.0-0.2) 03/20/22 05:43 Baso # (Auto) 0.0 X10^3/uL (0.0-0.1) 03/20/22 05:43 Absolute Nucleated RBC 0.1 /100WBC 03/20/22 05:43 Total Counted 100 03/18/22 06:08 Neutrophils % (Manual) 95 % (39-76) H 03/18/22 06:08 Band Neutrophils % 3 % (0-10) 03/17/22 05:38 Lymphocytes % (Manual) 4 % (13-43) L 03/18/22 06:08 Monocytes % (Manual) 1 % (4-9) L 03/18/22 06:08 Eosinophils % (Manual) 1 % (0-6) 03/17/22 05:38 Plt Morphology Comment Normal (NORMAL) 03/18/22 06:08 RBC Morphology Normal (NORMAL) 03/18/22 06:08 ESR 43 MM/HOUR (0-20) H 03/13/22 15:50 D-Dimer 0.52 ug/ml (0.0-0.57) 03/14/22 05:40 Sample Site Lrad 03/13/22 15:38 ABG pH 7.450 (7.35-7.45) 03/13/22 15:38 ABG pCO2 44.0 mmHg (35.0-45.0) 03/13/22 15:38 ABG pO2 61.0 mmHg (80.0-100.0) L 03/13/22 15:38 ABG HCO3 30.6 mmol/L (22-26) H* 03/13/22 15:38 ABG O2 Saturation 92.0 % (90-100) 03/13/22 15:38 ABG Base Excess 5.8 mmol/L (-2.0-2.0) H 03/13/22 15:38 Leo Test Pos 03/13/22 15:38 A-a Gradient 34.0 mmHg 03/13/22 15:38 FiO2 21.0 03/13/22 15:38 Blood Gas Comments Igor well ms 03/13/22 15:38 Sodium 138 mmol/L (136-145) 03/20/22 05:43 Corrected Sodium 140 mmol/L (136-145) 03/20/22 05:43 Potassium 4.6 mmol/L (3.5-5.1) 03/20/22 05:43 Chloride 106 mmol/L (98-107) 03/20/22 05:43 Carbon Dioxide 23.8 mmol/L (21-32) 03/20/22 05:43 BUN 28 mg/dL (7-18) H 03/20/22 05:43 Creatinine 1.17 mg/dL (0.55-1.02) H 03/20/22 05:43 Est GFR (MDRD) Af Amer 57 (>60) L 03/20/22 05:43 Est GFR (MDRD) Non-Af 47 (>60) L 03/20/22 05:43 Glucose 194 mg/dL (65-99) H 03/20/22 05:43 POC Glucose (mg/dL) 182 mg/dL (65-99) H 03/20/22 11:14 Lactic Acid 1.8 mmol/L (0.4-2.0) 03/13/22 15:50 Calcium 7.5 mg/dL (8.5-10.1) L 03/20/22 05:43 Corrected Calcium 8.4 mg/dL (8.5-10.1) L 03/20/22 05:43 Total Bilirubin 0.30 mg/dL (0.2-1.0) 03/20/22 05:43 AST 13 Units/L (15-37) L 03/20/22 05:43 ALT 24 Units/L (12-78) 03/20/22 05:43 Alkaline Phosphatase 104 Units/L (46-116) 03/20/22 05:43 C-Reactive Protein 2.70 mg/L (0-3.0) 03/18/22 06:08 B-Natriuretic Peptide 434 pg/mL (0-79) H 03/20/22 05:43 Total Protein 6.0 g/dL (6.4-8.2) L 03/20/22 05:43 Albumin 2.9 g/dL (3.4-5.0) L 03/20/22 05:43 Globulin 3.1 g/dL (2.5-4.5) 03/20/22 05:43 Albumin/Globulin Ratio 0.9 Ratio (1.1-2.1) L 03/20/22 05:43 Specimen Type Clean catch urine 03/13/22 16:05 Urine Color Yellow (YELLOW) 03/13/22 16:05 Urine Appearance Hazy (CLEAR) 03/13/22 16:05 Urine pH 6.0 (5.0 - 8.0) 03/13/22 16:05 Ur Specific [place] 1.010 (1.000-1.030) 03/13/22 16:05 Urine Protein Negative (NEGATIVE) 03/13/22 16:05 Urine Glucose (UA) Negative (NEGATIVE) 03/13/22 16:05 Urine Ketones Negative (NEGATIVE) 03/13/22 16:05 Urine Blood 1+ (NEGATIVE) 03/13/22 16:05 Urine Nitrite Negative (NEGATIVE) 03/13/22 16:05 Urine Bilirubin Negative (NEGATIVE) 03/13/22 16:05 Urine Urobilinogen Normal (NORMAL) 03/13/22 16:05 Ur Leukocyte Esterase 3+ (NEGATIVE) 03/13/22 16:05 Urine RBC 5-10 /HPF (0-3) A 03/13/22 16:05 Urine WBC 30-50 /HPF (0-5) A 03/13/22 16:05 Ur Squamous Epith Cells Few /HPF (NEGATIVE) 03/13/22 16:05 Urine Bacteria Trace /HPF (NEGATIVE) 03/13/22 16:05 Ur Culture Indicated? Yes/culture set up 03/13/22 16:05 SARS CoV-2 RNA Rapid JUAN Positive (NEGATIVE) A 03/13/22 19:30 - Plan (1) Urinary tract infection Status: Acute Qualifiers: Urinary tract infection type: acute cystitis Hematuria presence: with hematuria Qualified Code(s): N30.01 - Acute cystitis with hematuria Plan: NORMAL SALINE AT 20 ML/HR, ROCEPHIN 1G IV HS, SOLU-MEDROL 40MG IV DAILY, METOPROLOL 25MG PO BID, PULMICORT NEBS BID, DIFLUCAN 100MG PO DAILY, OTBS ACHS, HUMULIN R SLIDING SCALE, COLACE, MILK OF MAGNESIA, MIRALAX, AND HER HOME MEDICATIONS WERE RESUMED. 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
[2022-03-20] MEDS: ROCEPHIN VIAL 1 GRAM 1 G in NS 100 ML IV 100 ML IV SCH (21:29)
[2022-03-20] MEDS: LIPITOR TAB 10 MG PO SCH (21:41)
[2022-03-20] MEDS: LOVENOX INJ 30 MG SYR SC SCH (21:52)
[2022-03-21] MEDS: NS 1,000 ML IV 1,000 ML IV SCH ×5 (00:31→21:44)
[2022-03-21] MEDS: SNACK - Diabetic Appropriate PO SCH ×4 (00:33→21:00)
[2022-03-21 06:14] LABS: BASOPHILS # (AUTO) 0.1 X10^3/uL (0.0-0.1); BASOPHILS % (AUTO) 0.4 % (0.2-1.0); EOSINOPHILS % (AUTO) 0.2 % (0.9-2.9); HEMATOCRIT 42.1 % (36.0-47.0); HEMOGLOBIN 13.9 g/dL (12.0-16.0); LYMPHOCYTES # (AUTO) 1.7 X10^3/uL (1.3-2.9); LYMPHOCYTES % (AUTO) 10.8 % (21.0-51.0); MEAN CORPUSCULAR HEMOGLOBIN 30.3 pg (27.0-34.0); MEAN CORPUSCULAR VOLUME 91.8 fL (80.0-100.0); MEAN PLATELET VOLUME 7.6 fL (7.4-11.0); MONOCYTES # (AUTO) 1.8 x10^3/uL (0.3-0.8); MONOCYTES % (AUTO) 11.3 % (0.0-13.0); NEUTROPHILS # (AUTO) 12.4 x10^3/uL (2.2-4.8); NEUTROPHILS % (AUTO) 77.3 % (42.0-75.0); RED BLOOD COUNT 4.58 X10^6/uL (3.5-5.4); RED CELL DISTRIBUTION WIDTH 15.1 % (11.6-16.5)
[2022-03-21 06:42] LABS: ALBUMIN 2.7 g/dL (3.4-5.0); CALCIUM 7.9 mg/dL (8.5-10.1); CARBON DIOXIDE 22.8 mmol/L (21-32); COR CA(FOR HYPOALB) 8.9 mg/dL (8.5-10.1); CREATININE 1.12 mg/dL (0.55-1.02); TOTAL PROTEIN 5.7 g/dL (6.4-8.2)
--- NOTE | 2022-03-21 06:43 | RAD ---
HISTORYFollow-up COVID-19, shortness of breathSTUDYChest AP [id number]/12/2022FINDINGSHear t size is upper limits normal and unchanged. No congestive heart failure is noted. [place] are normal. Lungs are hyperinflated but free of acute infiltrates. No pleural effusions are identified. Bony thorax is unremarkable.IMPRESSIONMild hyperinflation, unchangedNo definite acute infiltratesElectronically signed by: JOSETTE SORIANO (Mar 21, 2022 06:42:07)
[2022-03-21] MEDS: NEBIVOLOL 2.5 MG PO SCH ×2 (08:06→09:48)
[2022-03-21] MEDS: PULMICORT NEB TX 0.5 MG NEB SCH ×2 (08:40→21:00)
[2022-03-21] MEDS: COLACE CAP 100 MG PO SCH ×2 (09:48→20:40)
[2022-03-21] MEDS: PROTONIX TAB 40 MG PO SCH (09:49)
[2022-03-21] MEDS: DIFLUCAN PO SCH (09:49)
[2022-03-21] MEDS: MICRO K EXTEN CAP 10 MEQ PO SCH ×2 (09:49→20:40)
[2022-03-21] MEDS: LASIX PO SCH (09:49)
[2022-03-21] MEDS: PAXIL PO SCH (09:49)
[2022-03-21] MEDS: MIRALAX POWDER (1 DOSE 17 G) PO SCH (09:50)
[2022-03-21] MEDS: PRADAXA PO SCH ×2 (09:50→20:40)
[2022-03-21] MEDS: LOPRESSOR TAB 25 MG PO SCH ×2 (09:50→20:40)
[2022-03-21] MEDS: SYNTHROID 50 mcg TAB PO SCH (09:50)
[2022-03-21] MEDS: REMDESIVIR 100 MG in NS 250 ML IV 250 ML IV SCH (09:50)
[2022-03-21] MEDS: GLUCOTROL PO SCH ×2 (09:50→20:40)
[2022-03-21] MEDS: MILK OF MAGNESIA PO SCH ×4 (09:51→21:46)
[2022-03-21] MEDS: ZYLOPRIM PO SCH (09:51)
[2022-03-21] MEDS: SOLU-Medrol 40 MG VIAL IVP SCH (09:51)
[2022-03-21] MEDS: NovoLIN R (or HumuLIN R) SUBCUT PRN ×2 (16:39→21:53)
[2022-03-21] MEDS: LOVENOX INJ 30 MG SYR SC SCH (20:40)
[2022-03-21] MEDS: ROCEPHIN VIAL 1 GRAM 1 G in NS 100 ML IV 100 ML IV SCH (20:40)
[2022-03-21] MEDS: LIPITOR TAB 10 MG PO SCH (20:40)
--- NOTE | 2022-03-22 06:34 | RAD ---
HISTORYFollow-up COVID-19, shortness of breathSTUDYChest AP [id number]/13/2022FINDINGSHear t is enlarged. No congestive heart failure is noted. Lungs remain hyperinflated but free of acute infiltrates. No pleural effusion or pneumothorax is identified. Bony thorax is unremarkable.IMPRESSIONMild cardiomegaly without congestive heart failureLungs mildly hyperinflated but clearElectronically signed by: JOSETTE SORIANO (Mar 22, 2022 06:33:19)
[2022-03-22 06:48] LABS: ALBUMIN 2.6 g/dL (3.4-5.0); CALCIUM 7.6 mg/dL (8.5-10.1); COR CA(FOR HYPOALB) 8.7 mg/dL (8.5-10.1); CREATININE 1.12 mg/dL (0.55-1.02); TOTAL PROTEIN 5.3 g/dL (6.4-8.2)
[2022-03-22 07:19] LABS: BASOPHILS % (AUTO) 0.2 % (0.2-1.0); EOSINOPHILS % (AUTO) 0.2 % (0.9-2.9); HEMATOCRIT 40.5 % (36.0-47.0); HEMOGLOBIN 13.5 g/dL (12.0-16.0); LYMPHOCYTES # (AUTO) 1.7 X10^3/uL (1.3-2.9); LYMPHOCYTES % (AUTO) 12.5 % (21.0-51.0); MEAN CORPUSCULAR HEMOGLOBIN 30.8 pg (27.0-34.0); MEAN CORPUSCULAR HGB CONC 33.3 g/dL (33.0-35.0); MEAN CORPUSCULAR VOLUME 92.6 fL (80.0-100.0); MEAN PLATELET VOLUME 8.1 fL (7.4-11.0); MONOCYTES # (AUTO) 1.5 x10^3/uL (0.3-0.8); MONOCYTES % (AUTO) 11.3 % (0.0-13.0); NEUTROPHILS % (AUTO) 75.8 % (42.0-75.0); RED BLOOD COUNT 4.38 X10^6/uL (3.5-5.4); RED CELL DISTRIBUTION WIDTH 14.7 % (11.6-16.5); WHITE BLOOD COUNT 13.2 X10^3/uL (3.6-10.0)
[2022-03-22] MEDS: PULMICORT NEB TX 0.5 MG NEB SCH ×2 (08:20→20:55)
[2022-03-22] MEDS: PRADAXA PO SCH ×2 (08:40→20:33)
[2022-03-22] MEDS: LASIX PO SCH (08:41)
[2022-03-22] MEDS: DIFLUCAN PO SCH (08:41)
[2022-03-22] MEDS: SYNTHROID 50 mcg TAB PO SCH (08:42)
[2022-03-22] MEDS: ZYLOPRIM PO SCH (08:42)
[2022-03-22] MEDS: GLUCOTROL PO SCH ×2 (08:42→20:33)
[2022-03-22] MEDS: PROTONIX TAB 40 MG PO SCH (08:42)
[2022-03-22] MEDS: COLACE CAP 100 MG PO SCH ×2 (08:42→20:35)
[2022-03-22] MEDS: MIRALAX POWDER (1 DOSE 17 G) PO SCH (08:43)
[2022-03-22] MEDS: MICRO K EXTEN CAP 10 MEQ PO SCH ×2 (08:43→20:35)
[2022-03-22] MEDS: PAXIL PO SCH (08:43)
[2022-03-22] MEDS: MILK OF MAGNESIA PO SCH ×4 (08:43→20:51)
[2022-03-22] MEDS: LOPRESSOR TAB 25 MG PO SCH ×2 (08:43→20:34)
[2022-03-22] MEDS: SOLU-Medrol 40 MG VIAL IVP SCH (08:47)
[2022-03-22] MEDS: NS 1,000 ML IV 1,000 ML IV SCH ×2 (08:48→22:30)
[2022-03-22] MEDS: NEBIVOLOL 2.5 MG PO SCH (08:53)
[2022-03-22] MEDS: REMDESIVIR 100 MG in NS 250 ML IV 250 ML IV SCH (09:59)
--- NOTE | 2022-03-22 11:52 | PCM.PROG ---
Progress Note - Progress Note for Day of Date of Exam: 03/21/22 - Subjective Subjective: WAS ADMITTED FOR TREATMENT OF E.COLI UTI, COVID-19, RIB FX, GENERALIZED WEAKNESS, AND FREQUENT FALLS. TODAY, SHE IS ALERT AND ORIENTED, LYING IN BED ON MORNING ROUNDS. SHE CONTINUES WITH COMPLAINTS OF GENERALIZED WEAKNESS AND RIB PAIN AT TIMES. SHE ALSO HAS AN OCCASIONAL NON-PRODUCTIVE COUGH. OVERALL, SHE REPORTS IMPROVEMENT SINCE ADMISSION. ON EXAMINATION, HER HEART IS REGULAR IN RATE AND RHYTHM. BILATERAL LUNGS ARE NOTED WITH DIMINISHED LUNG SOUNDS THROUGHOUT. SHE IS CURRENTLY UTILIZING OXYGEN VIA NASAL CANNULA AT 2 LPM. SATURATIONS HAVE REMAINED IN THE 90s. ABDOMEN IS ROUND, SOFT, AND NON-TENDER. TRACE BILATERAL LOWER EXTREMITY EDEMA IS NOTED. HER VITALS THIS MORNING ARE: 97.8-84-20-94%-116/75. LABS WERE OBTAINED. WBC 16.0, RBC 4.58, HGB 13.9, HCT 42.1, PLT COUNT 272, SODIUM 139, POTASSIUM 4.7, BUN 26, CREATININE 1.12, GLUCOSE 120, CALCIUM 7.9, AST 12, ALT 25, ALK PHOS 105, BNP 406, TOTAL PROTEIN 5.7, ALBUMIN 2.7. CHEST XRAY REVEALED: Heart size is upper limits normal and unchanged. No congestive heart failure is noted. [place] are normal. Lungs are hyperinflated but free of acute infiltrates. No pleural effusions are identified. Bony thorax is unremarkable. SHE IS CURRENTLY RECEIVING NORMAL SALINE AT 20 ML/HR, REMDESIVIR 100MG IV DAILY, ROCEPHIN 1G IV HS, SOLU-MEDROL 40MG IV DAILY, PULMICORT NEBS BID, DIFLUCAN 100MG PO DAILY, LASIX 20MG PO DAILY, MILK OF MAGNESIA 15ML PO QID, COLACE 100MG PO BID, MIRALAX 17G DAILY, OTBS ACHS, HUMULIN R SLIDING SCALE, METOPROLOL 25MG PO BID, AND HER HOME MEDICATIONS WERE RESUMED. PHYSICAL THERAPY RECOMMENDS LTC PLACEMENT FOR [facility] AND CONTINUED PT SERVICES TO FACILITATE HIGHEST LEVEL OF FUNCTION PRIOR TO RETURNING HOME. IF SHE REMAINS STABLE, WE ARE PLANNING FOR DISCHARGE TO THE [facility] IN [place], [place] ON TOMORROW OR SUNDAY. PHYSICAL THERAPY WILL CONTINUE TO WORK WITH HER WHILE SHE IS HERE. OTHERWISE, WE WILL FOLLOW-UP WITH AM LABS AND CONTINUE TO MONITOR. TIME SPENT ON CLINICAL ASSESSMENT, REVIEWING LABS AND IMAGING, DECISION MAKING, AND DOCUMENTATION GREATER THAN 45 MINUTES. - Past Medical Family Social History Past Med/Fam/Surg Hx: No changes since H&P Allergies: Allergies No Known Drug Allergies Allergy (Verified 03/13/22 16:26) - Review of Systems ROS: No change since H&P - Vital Signs and I&O's Vital Signs: Temperature 98.0 F Pulse Rate [Left Brachial] 88 Pulse Rate 81 Respiratory Rate 20 Blood Pressure [Right Arm] 153/91 O2 Sat by Pulse Oximetry 97 Intake and Output: Intake & Output 03/19/22 03/20/22 03/21/22 03/22/22 11:59 11:59 11:59 11:59 Intake Total 1725 / 1725 1490 / 1490 2315 / 2315 2279 / 2279 Balance 1725 / 1725 1490 / 1490 2315 / 2315 2279 / 2279 - Physical Exam Oriented: Normal Eyes: Normal Ear: Normal Nose: Normal Throat: Normal Respiratory: Diminished Cardiovascular: Tachycardia, Irregular (A-FIB), Edema (BLE TRACE EDEMA ). negative: S3, S4 : Normal Auscultation: Bowel Sounds: Decreased Palpation: Normal Tenderness: Normal Skin: Normal Musculoskeletal: Right (RIGHT SIDED RIB TENDERNESS ), Left (LEFT SIDED RIB TENDERNESS ), Tender Psychiatric: Normal Mood Description: Calm Affect: Normal Speech Pattern: Clear, Appropriate - Laboratory and Diagnostics Result Diagrams: 03/22/22 05:39 03/22/22 05:39 Labs: 03/13/22 15:54 Blood Blood Culture - Final 03/13/22 15:50 Blood Blood Culture - Final 03/13/22 16:05 Urine,Clean Catch Urine Culture - Final Escherichia Coli Laboratory WBC 13.2 X10^3/uL (3.6-10.0) H 03/22/22 05:39 RBC 4.38 X10^6/uL (3.5-5.4) 03/22/22 05:39 Hgb 13.5 g/dL (12.0-16.0) 03/22/22 05:39 Hct 40.5 % (36.0-47.0) 03/22/22 05:39 MCV 92.6 fL (80.0-100.0) 03/22/22 05:39 MCH 30.8 pg (27.0-34.0) 03/22/22 05:39 MCHC 33.3 g/dL (33.0-35.0) 03/22/22 05:39 RDW 14.7 % (11.6-16.5) 03/22/22 05:39 Plt Count 239 X10^3/uL (150.0-450.0) 03/22/22 05:39 Plt Count Comment Adequate (ADEQUATE) 03/18/22 06:08 MPV 8.1 fL (7.4-11.0) 03/22/22 05:39 Neut % (Auto) 75.8 % (42.0-75.0) H 03/22/22 05:39 Lymph % (Auto) 12.5 % (21.0-51.0) L 03/22/22 05:39 [place] % (Auto) 11.3 % (0.0-13.0) 03/22/22 05:39 Eos % (Auto) 0.2 % (0.9-2.9) L 03/22/22 05:39 Baso % (Auto) 0.2 % (0.2-1.0) 03/22/22 05:39 Neut # (Auto) 10.0 x10^3/uL (2.2-4.8) H 03/22/22 05:39 Lymph # (Auto) 1.7 X10^3/uL (1.3-2.9) 03/22/22 05:39 [place] # (Auto) 1.5 x10^3/uL (0.3-0.8) H 03/22/22 05:39 Eos # (Auto) 0.0 x10^3/uL (0.0-0.2) 03/22/22 05:39 Baso # (Auto) 0.0 X10^3/uL (0.0-0.1) 03/22/22 05:39 Absolute Nucleated RBC 0.1 /100WBC 03/22/22 05:39 Total Counted 100 03/18/22 06:08 Neutrophils % (Manual) 95 % (39-76) H 03/18/22 06:08 Band Neutrophils % 3 % (0-10) 03/17/22 05:38 Lymphocytes % (Manual) 4 % (13-43) L 03/18/22 06:08 Monocytes % (Manual) 1 % (4-9) L 03/18/22 06:08 Eosinophils % (Manual) 1 % (0-6) 03/17/22 05:38 Plt Morphology Comment Normal (NORMAL) 03/18/22 06:08 RBC Morphology Normal (NORMAL) 03/18/22 06:08 ESR 43 MM/HOUR (0-20) H 03/13/22 15:50 D-Dimer 0.52 ug/ml (0.0-0.57) 03/14/22 05:40 Sample Site Lrad 03/13/22 15:38 ABG pH 7.450 (7.35-7.45) 03/13/22 15:38 ABG pCO2 44.0 mmHg (35.0-45.0) 03/13/22 15:38 ABG pO2 61.0 mmHg (80.0-100.0) L 03/13/22 15:38 ABG HCO3 30.6 mmol/L (22-26) H* 03/13/22 15:38 ABG O2 Saturation 92.0 % (90-100) 03/13/22 15:38 ABG Base Excess 5.8 mmol/L (-2.0-2.0) H 03/13/22 15:38 Leo Test Pos 03/13/22 15:38 A-a Gradient 34.0 mmHg 03/13/22 15:38 FiO2 21.0 03/13/22 15:38 Blood Gas Comments Igor well ms 03/13/22 15:38 Sodium 141 mmol/L (136-145) 03/22/22 05:39 Corrected Sodium 142 mmol/L (136-145) 03/22/22 05:39 Potassium 5.1 mmol/L (3.5-5.1) 03/22/22 05:39 Chloride 108 mmol/L (98-107) H 03/22/22 05:39 Carbon Dioxide 28.0 mmol/L (21-32) 03/22/22 05:39 BUN 23 mg/dL (7-18) H 03/22/22 05:39 Creatinine 1.12 mg/dL (0.55-1.02) H 03/22/22 05:39 Est GFR (MDRD) Af Amer 59 (>60) 03/22/22 05:39 Est GFR (MDRD) Non-Af 49 (>60) L 03/22/22 05:39 Glucose 146 mg/dL (65-99) H 03/22/22 05:39 POC Glucose (mg/dL) 125 mg/dL (65-99) H 03/22/22 11:12 Lactic Acid 1.8 mmol/L (0.4-2.0) 03/13/22 15:50 Calcium 7.6 mg/dL (8.5-10.1) L 03/22/22 05:39 Corrected Calcium 8.7 mg/dL (8.5-10.1) 03/22/22 05:39 Total Bilirubin 0.40 mg/dL (0.2-1.0) 03/22/22 05:39 AST 14 Units/L (15-37) L 03/22/22 05:39 ALT 30 Units/L (12-78) 03/22/22 05:39 Alkaline Phosphatase 92 Units/L (46-116) 03/22/22 05:39 C-Reactive Protein 2.70 mg/L (0-3.0) 03/18/22 06:08 B-Natriuretic Peptide 315 pg/mL (0-79) H 03/22/22 05:39 Total Protein 5.3 g/dL (6.4-8.2) L 03/22/22 05:39 Albumin 2.6 g/dL (3.4-5.0) L 03/22/22 05:39 Globulin 2.7 g/dL (2.5-4.5) 03/22/22 05:39 Albumin/Globulin Ratio 1.0 Ratio (1.1-2.1) L 03/22/22 05:39 Specimen Type Clean catch urine 03/13/22 16:05 Urine Color Yellow (YELLOW) 03/13/22 16:05 Urine Appearance Hazy (CLEAR) 03/13/22 16:05 Urine pH 6.0 (5.0 - 8.0) 03/13/22 16:05 Ur Specific [place] 1.010 (1.000-1.030) 03/13/22 16:05 Urine Protein Negative (NEGATIVE) 03/13/22 16:05 Urine Glucose (UA) Negative (NEGATIVE) 03/13/22 16:05 Urine Ketones Negative (NEGATIVE) 03/13/22 16:05 Urine Blood 1+ (NEGATIVE) 03/13/22 16:05 Urine Nitrite Negative (NEGATIVE) 03/13/22 16:05 Urine Bilirubin Negative (NEGATIVE) 03/13/22 16:05 Urine Urobilinogen Normal (NORMAL) 03/13/22 16:05 Ur Leukocyte Esterase 3+ (NEGATIVE) 03/13/22 16:05 Urine RBC 5-10 /HPF (0-3) A 03/13/22 16:05 Urine WBC 30-50 /HPF (0-5) A 03/13/22 16:05 Ur Squamous Epith Cells Few /HPF (NEGATIVE) 03/13/22 16:05 Urine Bacteria Trace /HPF (NEGATIVE) 03/13/22 16:05 Ur Culture Indicated? Yes/culture set up 03/13/22 16:05 SARS CoV-2 RNA Rapid JUAN Positive (NEGATIVE) A 03/13/22 19:30 - Plan (1) Urinary tract infection Status: Acute Qualifiers: Urinary tract infection type: acute cystitis Hematuria presence: with hematuria Qualified Code(s): N30.01 - Acute cystitis with hematuria Plan: NORMAL SALINE AT 20 ML/HR, ROCEPHIN 1G IV HS, SOLU-MEDROL 40MG IV DAILY, METOPROLOL 25MG PO BID, PULMICORT NEBS BID, DIFLUCAN 100MG PO DAILY, OTBS ACHS, HUMULIN R SLIDING SCALE, COLACE, MILK OF MAGNESIA, MIRALAX, AND HER HOME MEDICATIONS WERE RESUMED. 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
[2022-03-22] MEDS: NovoLIN R (or HumuLIN R) SUBCUT PRN ×2 (17:31→22:45)
[2022-03-22] MEDS: LIPITOR TAB 10 MG PO SCH (20:35)
[2022-03-22] MEDS: LOVENOX INJ 30 MG SYR SC SCH (20:36)
[2022-03-22] MEDS: SNACK - Diabetic Appropriate PO SCH ×2 (20:50→20:51)
[2022-03-22] MEDS: ROCEPHIN VIAL 1 GRAM 1 G in NS 100 ML IV 100 ML IV SCH (20:51)
[2022-03-23 06:22] LABS: BASOPHILS # (AUTO) 0.1 X10^3/uL (0.0-0.1); BASOPHILS % (AUTO) 0.4 % (0.2-1.0); EOSINOPHILS # (AUTO) 0.1 x10^3/uL (0.0-0.2); EOSINOPHILS % (AUTO) 0.4 % (0.9-2.9); HEMATOCRIT 40.7 % (36.0-47.0); HEMOGLOBIN 13.7 g/dL (12.0-16.0); LYMPHOCYTES % (AUTO) 14.1 % (21.0-51.0); MEAN CORPUSCULAR HGB CONC 33.7 g/dL (33.0-35.0); MEAN CORPUSCULAR VOLUME 92.1 fL (80.0-100.0); MEAN PLATELET VOLUME 7.6 fL (7.4-11.0); MONOCYTES # (AUTO) 1.3 x10^3/uL (0.3-0.8); MONOCYTES % (AUTO) 9.4 % (0.0-13.0); NEUTROPHILS # (AUTO) 10.8 x10^3/uL (2.2-4.8); NEUTROPHILS % (AUTO) 75.7 % (42.0-75.0); RED BLOOD COUNT 4.42 X10^6/uL (3.5-5.4); RED CELL DISTRIBUTION WIDTH 15.2 % (11.6-16.5); WHITE BLOOD COUNT 14.2 X10^3/uL (3.6-10.0)
--- NOTE | 2022-03-23 06:29 | RAD ---
HISTORYShortness of breath, COVID-19STUDYChest AP [id number] t remains enlarged. No congestive heart failure is noted. [place] are normal. Aorta is calcified. Lungs are hyperinflated but free of acute infiltrates. No pleural effusions are identified. Bony thorax is unremarkable.IMPRESSIONLungs mildly hyperinflated but clearMild cardiomegaly without congestive heart failure, unchangedElectronically signed by: JOSETTE SORIANO (Mar 23, 2022 06:27:38)
[2022-03-23 06:42] LABS: ALANINE AMINOTRANSFERASE 27 Units/L (12-78); ALBUMIN 2.6 g/dL (3.4-5.0); ALKALINE PHOSPHATASE 93 Units/L (46-116); ASPARTATE AMINO TRANSFERASE 13 Units/L (15-37); BLOOD UREA NITROGEN 24 mg/dL (7-18); CALCIUM 7.6 mg/dL (8.5-10.1); CARBON DIOXIDE 26.6 mmol/L (21-32); CHLORIDE 108 mmol/L (98-107); COR CA(FOR HYPOALB) 8.7 mg/dL (8.5-10.1); CREATININE 1.15 mg/dL (0.55-1.02); SODIUM 141 mmol/L (136-145); TOTAL PROTEIN 5.5 g/dL (6.4-8.2); eGFR NON BLACK RACES 48 (>60)
[2022-03-23 08:41] VITALS: BP 158/81
[2022-03-23] MEDS: PULMICORT NEB TX 0.5 MG NEB SCH (09:01)
[2022-03-23] MEDS: REMDESIVIR 100 MG in NS 250 ML IV 250 ML IV SCH (09:19)
[2022-03-23] MEDS: SOLU-Medrol 40 MG VIAL IVP SCH (09:20)
[2022-03-23] MEDS: GLUCOTROL PO SCH (09:20)
[2022-03-23] MEDS: PRADAXA PO SCH (09:20)
[2022-03-23] MEDS: PROTONIX TAB 40 MG PO SCH (09:22)
[2022-03-23] MEDS: LOPRESSOR TAB 25 MG PO SCH (09:23)
[2022-03-23] MEDS: ZYLOPRIM PO SCH (09:23)
[2022-03-23] MEDS: MICRO K EXTEN CAP 10 MEQ PO SCH (09:23)
[2022-03-23] MEDS: COLACE CAP 100 MG PO SCH (09:23)
[2022-03-23] MEDS: DIFLUCAN PO SCH (09:24)
[2022-03-23] MEDS: LASIX PO SCH (09:24)
[2022-03-23] MEDS: PAXIL PO SCH (09:24)
[2022-03-23] MEDS: SYNTHROID 50 mcg TAB PO SCH (09:24)
[2022-03-23] MEDS: MILK OF MAGNESIA PO SCH (09:25)
[2022-03-23] MEDS: NEBIVOLOL 2.5 MG PO SCH (09:26)
[2022-03-23] MEDS: MIRALAX POWDER (1 DOSE 17 G) PO SCH (09:26)
--- NOTE | 2022-03-29 23:52 | PCM.PROG ---
Progress Note - Progress Note for Day of Date of Exam: 03/22/22 - Subjective Subjective: WAS ADMITTED FOR TREATMENT OF E.COLI UTI, COVID-19, RIB FX, GENERALIZED WEAKNESS, AND FREQUENT FALLS. TODAY, SHE IS ALERT AND ORIENTED, LYING IN BED ON MORNING ROUNDS. SHE CONTINUES WITH COMPLAINTS OF GENERALIZED WEAKNESS AND RIB PAIN AT TIMES. SHE ALSO HAS AN OCCASIONAL NON-PRODUCTIVE COUGH. OVERALL, SHE REPORTS IMPROVEMENT SINCE ADMISSION. ON EXAMINATION, HER HEART IS REGULAR IN RATE AND RHYTHM. BILATERAL LUNGS ARE NOTED WITH DIMINISHED LUNG SOUNDS THROUGHOUT. SHE IS CURRENTLY UTILIZING OXYGEN VIA NASAL CANNULA AT 2 LPM. SATURATIONS HAVE REMAINED IN THE 90s. ABDOMEN IS ROUND, SOFT, AND NON-TENDER. TRACE BILATERAL LOWER EXTREMITY EDEMA IS NOTED. HER VITALS THIS MORNING ARE: 98.0-88-20-97%-153/91. LABS WERE OBTAINED. WBC 13.2, RBC 4.38, HGB 13.5, HCT 40.5, PLT COUNT 239, SODIUM 141, POTASSIUM 5.1, CHLORIDE 108, BUN 23, CREATININE 1.12, GLUCOSE 146, CALCIUM 7.6, AST 14, ALT 30, ALK PHOS 92, BNP 315, TOTAL PROTEIN 5.3, ALBUMIN 2.6. SHE IS CURRENTLY RECEIVING NORMAL SALINE AT 20 ML/HR, REMDESIVIR 100MG IV DAILY, ROCEPHIN 1G IV HS, SOLU-MEDROL 40MG IV DAILY, PULMICORT NEBS BID, DIFLUCAN 100MG PO DAILY, LASIX 20MG PO DAILY, MILK OF MAGNESIA 15ML PO QID, COLACE 100MG PO BID, MIRALAX 17G DAILY, OTBS ACHS, HUMULIN R SLIDING SCALE, METOPROLOL 25MG PO BID, AND HER HOME MEDICATIONS WERE RESUMED. PHYSICAL THERAPY RECOMMENDS LTC PLACEMENT FOR [facility] AND CONTINUED PT SERVICES TO FACILITATE HIGHEST LEVEL OF FUNCTION PRIOR TO RETURNING HOME. IF SHE REMAINS STABLE, WE ARE PLANNING FOR DISCHARGE TO THE PRISON IN [place], [place] ON TOMORROW PHYSICAL THERAPY WILL CONTINUE TO WORK WITH HER WHILE SHE IS HERE. OTHERWISE, WE WILL FOLLOW-UP WITH AM LABS AND CONTINUE TO MONITOR. TIME SPENT ON CLINICAL ASSESSMENT, REVIEWING LABS AND IMAGING, DECISION MAKING, AND DOCUMENTATION GREATER THAN 45 MINUTES. - Past Medical Family Social History Past Med/Fam/Surg Hx: No changes since H&P Allergies: Allergies No Known Drug Allergies Allergy (Verified 03/13/22 16:26) - Review of Systems ROS: No change since H&P - Vital Signs and I&O's Vital Signs: Temperature 98.3 F Pulse Rate [Left Brachial] 90 Pulse Rate 74 Respiratory Rate 20 Blood Pressure [Right Arm] 158/81 O2 Sat by Pulse Oximetry 95 - Physical Exam Oriented: Normal Eyes: Normal Ear: Normal Nose: Normal Throat: Normal Respiratory: Diminished Cardiovascular: Tachycardia, Irregular (A-FIB), Edema (BLE TRACE EDEMA ). negative: S3, S4 : Normal Auscultation: Bowel Sounds: Decreased Palpation: Normal Tenderness: Normal Skin: Normal Musculoskeletal: Right (RIGHT SIDED RIB TENDERNESS ), Left (LEFT SIDED RIB TENDERNESS ), Tender Psychiatric: Normal Mood Description: Calm Affect: Normal Speech Pattern: Clear, Appropriate - Laboratory and Diagnostics Result Diagrams: 03/23/22 05:44 03/23/22 05:44 Labs: 03/13/22 15:54 Blood Blood Culture - Final 03/13/22 15:50 Blood Blood Culture - Final 03/13/22 16:05 Urine,Clean Catch Urine Culture - Final Escherichia Coli Laboratory WBC 14.2 X10^3/uL (3.6-10.0) H 03/23/22 05:44 RBC 4.42 X10^6/uL (3.5-5.4) 03/23/22 05:44 Hgb 13.7 g/dL (12.0-16.0) 03/23/22 05:44 Hct 40.7 % (36.0-47.0) 03/23/22 05:44 MCV 92.1 fL (80.0-100.0) 03/23/22 05:44 MCH 31.0 pg (27.0-34.0) 03/23/22 05:44 MCHC 33.7 g/dL (33.0-35.0) 03/23/22 05:44 RDW 15.2 % (11.6-16.5) 03/23/22 05:44 Plt Count 238 X10^3/uL (150.0-450.0) 03/23/22 05:44 Plt Count Comment Adequate (ADEQUATE) 03/18/22 06:08 MPV 7.6 fL (7.4-11.0) 03/23/22 05:44 Neut % (Auto) 75.7 % (42.0-75.0) H 03/23/22 05:44 Lymph % (Auto) 14.1 % (21.0-51.0) L 03/23/22 05:44 [place] % (Auto) 9.4 % (0.0-13.0) 03/23/22 05:44 Eos % (Auto) 0.4 % (0.9-2.9) L 03/23/22 05:44 Baso % (Auto) 0.4 % (0.2-1.0) 03/23/22 05:44 Neut # (Auto) 10.8 x10^3/uL (2.2-4.8) H 03/23/22 05:44 Lymph # (Auto) 2.0 X10^3/uL (1.3-2.9) 03/23/22 05:44 [place] # (Auto) 1.3 x10^3/uL (0.3-0.8) H 03/23/22 05:44 Eos # (Auto) 0.1 x10^3/uL (0.0-0.2) 03/23/22 05:44 Baso # (Auto) 0.1 X10^3/uL (0.0-0.1) 03/23/22 05:44 Absolute Nucleated RBC 0.0 /100WBC 03/23/22 05:44 Total Counted 100 03/18/22 06:08 Neutrophils % (Manual) 95 % (39-76) H 03/18/22 06:08 Band Neutrophils % 3 % (0-10) 03/17/22 05:38 Lymphocytes % (Manual) 4 % (13-43) L 03/18/22 06:08 Monocytes % (Manual) 1 % (4-9) L 03/18/22 06:08 Eosinophils % (Manual) 1 % (0-6) 03/17/22 05:38 Plt Morphology Comment Normal (NORMAL) 03/18/22 06:08 RBC Morphology Normal (NORMAL) 03/18/22 06:08 ESR 43 MM/HOUR (0-20) H 03/13/22 15:50 D-Dimer 0.52 ug/ml (0.0-0.57) 03/14/22 05:40 Sample Site Lrad 03/13/22 15:38 ABG pH 7.450 (7.35-7.45) 03/13/22 15:38 ABG pCO2 44.0 mmHg (35.0-45.0) 03/13/22 15:38 ABG pO2 61.0 mmHg (80.0-100.0) L 03/13/22 15:38 ABG HCO3 30.6 mmol/L (22-26) H* 03/13/22 15:38 ABG O2 Saturation 92.0 % (90-100) 03/13/22 15:38 ABG Base Excess 5.8 mmol/L (-2.0-2.0) H 03/13/22 15:38 Leo Test Pos 03/13/22 15:38 A-a Gradient 34.0 mmHg 03/13/22 15:38 FiO2 21.0 03/13/22 15:38 Blood Gas Comments Igor well ms 03/13/22 15:38 Sodium 141 mmol/L (136-145) 03/23/22 05:44 Corrected Sodium TNP 03/23/22 05:44 Potassium 4.7 mmol/L (3.5-5.1) 03/23/22 05:44 Chloride 108 mmol/L (98-107) H 03/23/22 05:44 Carbon Dioxide 26.6 mmol/L (21-32) 03/23/22 05:44 BUN 24 mg/dL (7-18) H 03/23/22 05:44 Creatinine 1.15 mg/dL (0.55-1.02) H 03/23/22 05:44 Est GFR (MDRD) Af Amer 58 (>60) L 03/23/22 05:44 Est GFR (MDRD) Non-Af 48 (>60) L 03/23/22 05:44 Glucose 103 mg/dL (65-99) H 03/23/22 05:44 POC Glucose (mg/dL) 83 mg/dL (65-99) 03/23/22 06:03 Lactic Acid 1.8 mmol/L (0.4-2.0) 03/13/22 15:50 Calcium 7.6 mg/dL (8.5-10.1) L 03/23/22 05:44 Corrected Calcium 8.7 mg/dL (8.5-10.1) 03/23/22 05:44 Total Bilirubin 0.40 mg/dL (0.2-1.0) 03/23/22 05:44 AST 13 Units/L (15-37) L 03/23/22 05:44 ALT 27 Units/L (12-78) 03/23/22 05:44 Alkaline Phosphatase 93 Units/L (46-116) 03/23/22 05:44 C-Reactive Protein 2.70 mg/L (0-3.0) 03/18/22 06:08 B-Natriuretic Peptide 328 pg/mL (0-79) H 03/23/22 05:44 Total Protein 5.5 g/dL (6.4-8.2) L 03/23/22 05:44 Albumin 2.6 g/dL (3.4-5.0) L 03/23/22 05:44 Globulin 2.9 g/dL (2.5-4.5) 03/23/22 05:44 Albumin/Globulin Ratio 0.9 Ratio (1.1-2.1) L 03/23/22 05:44 Specimen Type Clean catch urine 03/13/22 16:05 Urine Color Yellow (YELLOW) 03/13/22 16:05 Urine Appearance Hazy (CLEAR) 03/13/22 16:05 Urine pH 6.0 (5.0 - 8.0) 03/13/22 16:05 Ur Specific [place] 1.010 (1.000-1.030) 03/13/22 16:05 Urine Protein Negative (NEGATIVE) 03/13/22 16:05 Urine Glucose (UA) Negative (NEGATIVE) 03/13/22 16:05 Urine Ketones Negative (NEGATIVE) 03/13/22 16:05 Urine Blood 1+ (NEGATIVE) 03/13/22 16:05 Urine Nitrite Negative (NEGATIVE) 03/13/22 16:05 Urine Bilirubin Negative (NEGATIVE) 03/13/22 16:05 Urine Urobilinogen Normal (NORMAL) 03/13/22 16:05 Ur Leukocyte Esterase 3+ (NEGATIVE) 03/13/22 16:05 Urine RBC 5-10 /HPF (0-3) A 03/13/22 16:05 Urine WBC 30-50 /HPF (0-5) A 03/13/22 16:05 Ur Squamous Epith Cells Few /HPF (NEGATIVE) 03/13/22 16:05 Urine Bacteria Trace /HPF (NEGATIVE) 03/13/22 16:05 Ur Culture Indicated? Yes/culture set up 03/13/22 16:05 SARS CoV-2 RNA Rapid JUAN Positive (NEGATIVE) A 03/13/22 19:30 - Plan (1) Urinary tract infection Status: Acute Qualifiers: Urinary tract infection type: acute cystitis Hematuria presence: with hematuria Qualified Code(s): N30.01 - Acute cystitis with hematuria Plan: NORMAL SALINE AT 20 ML/HR, ROCEPHIN 1G IV HS, SOLU-MEDROL 40MG IV DAILY, METOPROLOL 25MG PO BID, PULMICORT NEBS BID, DIFLUCAN 100MG PO DAILY, OTBS ACHS, HUMULIN R SLIDING SCALE, COLACE, MILK OF MAGNESIA, MIRALAX, AND HER HOME MEDICATIONS WERE RESUMED. 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
== END 2022-03-23 11:00 | DRG 178 ==
LOC: MED/SURG
PROVIDERS: ADMIT Internal Medicine; ATTEND Internal Medicine
DX: E11.65 Type 2 diabetes mellitus with hyperglycemia; U07.1 COVID-19; W18.39XA Other fall on same level, initial encounter; S22.32XA Fracture of one rib, left side, initial encounter for closed fracture; R79.82 Elevated C-reactive protein (CRP); E03.8 Other specified hypothyroidism; R79.89 Other specified abnormal findings of blood chemistry; R07.81 Pleurodynia; R06.02 Shortness of breath; I48.91 Unspecified atrial fibrillation; B96.29 Other Escherichia coli [E. coli] as the cause of diseases classified elsewhere; K21.9 Gastro-esophageal reflux disease without esophagitis; N30.01 Acute cystitis with hematuria; R00.0 Tachycardia, unspecified; Z85.3 Personal history of malignant neoplasm of breast; R94.31 Abnormal electrocardiogram [ECG] [EKG]; J20.8 Acute bronchitis due to other specified organisms; R29.6 Repeated falls; J44.9 Chronic obstructive pulmonary disease, unspecified; R53.1 Weakness